=== PATIENT | male | born 1955 | race Caucasian/White ===

== ENCOUNTER 2020-07-27 12:27 | Inpatient (IN) ==
[2020-07-27] MEDS ORDERED: CETIRIZINE 10 MG TABLET PO STA (12:59)
[2020-07-27] MEDS ORDERED: DEXAMETHASONE 4 MG/1 ML VIAL IV STA (12:59)
[2020-07-27] MEDS ORDERED: FAMOTIDINE 20 MG/2 ML VIAL IV STA (12:59)
[2020-07-27] MEDS ORDERED: PIPERACILLIN/TAZOBACTAM 3,375 MG in SODIUM CHLORIDE 0.9% 100 ML IV STA (13:09)
[2020-07-27 13:16] LABS: Basophils % 0.3 % (0.0-0.8); Eosinophils % 0.4 % (0.00-10.9); Hematocrit 35.9 VOL% (42.0-52.0); Hemoglobin 11.7 GM/DL (14.0-18.0); Immature Granulocytes Absolute 0.07 #; Lymphocytes # 0.7 10*3/uL (1.4-4.0); Lymphocytes % 10.5 % (21.2-54.2); Mean Corpuscular HGB Conc 32.6 GM/DL (32-36); Mean Corpuscular Volume 94.2 FL (87-102); Mean Platelet Volume 10.4 FL (9.6-12.0); Monocytes % 7.6 % (1.7-12.7); Neutrophils % 80.2 % (38.7-73.9); Platelet Count 224 T/CUMM (130-400); Red Blood Count 3.81 MC/CUMM (3.8-5.5); Red Cell Distribution Width 15.9 % (9.3-17.3); White Blood Count 6.7 T/CUMM (4-12)
[2020-07-27 13:30] LABS: INR 1.8; PT Patient Result 18.8 SECS (9.8-11.9)
[2020-07-27 13:40] LABS: Albumin 2.4 G/DL (3.4-5.0); Bilirubin,Total 0.6 MG/DL (0.2-1.0); Calcium 8.4 MG/DL (8.5-10.1); Ferritin 597.9 ng/ml (26-388); Osmolality,Calculated 276.7 MOS/KG (273-304); Total Protein 7.3 G/DL (6.4-8.3)
[2020-07-27] MEDS ORDERED: ONDANSETRON 4 MG/2 ML VIAL IV PRN (14:12)
[2020-07-27] MEDS ORDERED: ALBUTEROL 2.5 MG/3 ML NEB RESP TX PRN (14:12)
[2020-07-27 15:01] LABS: ABG Base Excess -4.4 MMOL/L (-2.5-2.5); ABG HCO3 20.7 MMOL/L (20-26); ABG Oxygen Saturation 93.9 % (95-100); ABG PCO2 27.3 MM HG (35-48); ABG PO2 68.1 MM HG (80-95); ABG TCO2 16.5 MMOL/L (23-27)
[2020-07-27] MEDS: SODIUM CHLORIDE 0.9% 1,000 ML IV SCH (15:20)
[2020-07-27] MEDS: cefTRIAXone 1,000 MG in SYRINGE 1 EACH IV SCH (15:21)
[2020-07-27] MEDS: ENOXAPARIN 80 MG/0.8 ML SYRINGE SUBCUT SCH (15:24)
[2020-07-27] MEDS: AZITHROMYCIN INJ 500 MG in SODIUM CHLORIDE 0.9% 250 ML IV SCH (15:25)
[2020-07-27] MEDS ORDERED: METOPROLOL SUCCINATE XL 50 MG TABLET PO ONE ×2 (16:58→17:03)
[2020-07-27] MEDS: ALPRAZolam 0.25 MG TABLET PO PRN ×2 (17:01→23:20)
[2020-07-27] MEDS: ISOSORBIDE MONONITRATE 60 MG TABLET PO SCH (17:43)
[2020-07-27] MEDS ORDERED: ALBUTEROL/IPRATROPIUM 3 ML NEB RESP TX SCH (19:00)
[2020-07-27 19:59] LABS: Bacteria,Urine Occasional /HPF (Few); Bilirubin,Urine Negative (Negative); Blood, Urine Small mg/dL (Negative); Glucose,Urine (UA) Negative (Negative); Ketones,Urine 20 mg/dL (Negative); Mucus,Urine Occasional /LPF (Occasional); Nitrite,Urine Negative (Negative); Protein,Urine 100 MG/DL; RBC,Urine 1 /HPF (0-4); Squamous Epithelial Cell,Urine Occasional /HPF (0-10); Urine Appearance CLEAR (Clear); Urine Color Amber (Yellow); Urine Specific Gravity 1.021 (1.001-1.035); WBC,Urine 2 /HPF (0-6)
[2020-07-27] MEDS: ALBUTEROL INHALER 18 GM INH SCH (20:04)
[2020-07-27] MEDS: FUROSEMIDE 40 MG TABLET PO SCH (21:03)
[2020-07-27] MEDS: ATORVASTATIN 40 MG TABLET PO SCH (21:03)
[2020-07-28] MEDS: SODIUM CHLORIDE 0.9% 1,000 ML IV SCH ×3 (02:15→21:00)
[2020-07-28 02:46] LABS: ABG Base Excess -5.1 MMOL/L (-2.5-2.5); ABG HCO3 20.1 MMOL/L (20-26); ABG PCO2 31.8 MM HG (35-48); ABG PH 7.386 (7.35-7.45); ABG TCO2 17.4 MMOL/L (23-27); Allen Test Positive; Pt O2 Delivery Device CPAP
[2020-07-28] MEDS: ENOXAPARIN 80 MG/0.8 ML SYRINGE SUBCUT SCH ×2 (04:27→14:52)
[2020-07-28 05:03] LABS: Basophils % 0.2 % (0.0-0.8); Hematocrit 31.1 VOL% (42.0-52.0); Immature Granulocytes % 1.1 %; Immature Granulocytes Absolute 0.06 #; Lymphocytes # 0.4 10*3/uL (1.4-4.0); Lymphocytes % 6.7 % (21.2-54.2); Mean Corpuscular HGB Conc 32.2 GM/DL (32-36); Platelet Count 200 T/CUMM (130-400); Red Blood Count 3.31 MC/CUMM (3.8-5.5); White Blood Count 5.7 T/CUMM (4-12)
[2020-07-28 05:18] LABS: Bilirubin,Total 0.8 MG/DL (0.2-1.0); Calcium 7.4 MG/DL (8.5-10.1); Osmolality,Calculated 286.1 MOS/KG (273-304); Total Protein 5.6 G/DL (6.4-8.3)
[2020-07-28 05:22] LABS: Microcytosis 1+; Ovalocytes Slight; Platelet Estimate Normal
[2020-07-28] MEDS ORDERED: SODIUM CHLORIDE 0.9% 1,000 ML IV PRN (07:48)
[2020-07-28] MEDS: ALPRAZolam 0.25 MG TABLET PO PRN ×2 (07:59→20:17)
[2020-07-28] MEDS: DEXAMETHASONE 4 MG/1 ML VIAL IV SCH (08:02)
[2020-07-28] MEDS: CHOLECALCIFEROL 400 UNIT TABLET PO SCH (08:03)
[2020-07-28] MEDS: FAMOTIDINE 20 MG TABLET PO SCH (08:03)
[2020-07-28] MEDS: SERTRALINE 100 MG TABLET PO SCH ×2 (08:03→08:26)
[2020-07-28] MEDS: ASCORBIC ACID 500 MG TABLET PO SCH (08:03)
[2020-07-28] MEDS: ZINC GLUCONATE 50 MG TABLET PO SCH (08:03)
[2020-07-28] MEDS: CLOPIDOGREL 75 MG TABLET PO SCH (08:04)
[2020-07-28] MEDS: FUROSEMIDE 40 MG TABLET PO SCH ×2 (08:04→20:19)
[2020-07-28] MEDS: cefTRIAXone 1,000 MG in SYRINGE 1 EACH IV SCH (08:04)
[2020-07-28] MEDS: LEVOTHYROXINE 25 MCG TABLET PO SCH (08:05)
[2020-07-28] MEDS: FEBUXOSTAT 80 MG TABLET PO SCH (08:05)
[2020-07-28] MEDS: ALBUTEROL INHALER 18 GM INH SCH ×4 (08:34→20:16)
[2020-07-28] MEDS ORDERED: RIVAROXABAN 10 MG TABLET PO SCH (09:00)
[2020-07-28] MEDS ORDERED: REMDESIVIR 200 MG in SODIUM CHLORIDE 0.9% 210 ML IV ONE (09:00)
[2020-07-28] MEDS: ISOSORBIDE MONONITRATE 60 MG TABLET PO SCH (09:32)
[2020-07-28] MEDS: AZITHROMYCIN INJ 500 MG in SODIUM CHLORIDE 0.9% 250 ML IV SCH (14:52)
[2020-07-28] MEDS: METOPROLOL SUCCINATE XL 50 MG TABLET PO SCH (17:35)
[2020-07-28] MEDS: ATORVASTATIN 40 MG TABLET PO SCH (20:17)
[2020-07-29 00:21] LABS: ABG Base Excess -3.8 MMOL/L (-2.5-2.5); ABG HCO3 19.7 MMOL/L (20-26); ABG Oxygen Saturation 88.5 % (95-100); ABG PCO2 30.5 MM HG (35-48); ABG PH 7.428 (7.35-7.45); ABG PO2 55.7 MM HG (80-95); ABG TCO2 20.6 MMOL/L (23-27); Allen Test Positive; Pt O2 Delivery Device BIPAP
[2020-07-29] MEDS ORDERED: ETOMIDATE 20 MG/10 ML VIAL IV ONE ×3 (00:30→07:34)
[2020-07-29] MEDS ORDERED: ROCURONIUM 100 MG/10 ML VIAL IV ONE (00:31)
[2020-07-29] MEDS ORDERED: LORazepam 2 MG/1 ML VIAL ONE (00:48)
[2020-07-29] MEDS ORDERED: LORazepam 2 MG/1 ML VIAL IV STA (01:12)
[2020-07-29] MEDS: ALBUTEROL INHALER 18 GM INH SCH ×4 (01:28→20:02)
[2020-07-29] MEDS: ENOXAPARIN 80 MG/0.8 ML SYRINGE SUBCUT SCH ×2 (03:21→15:09)
[2020-07-29 03:39] LABS: ABG Base Excess -3.5 MMOL/L (-2.5-2.5); ABG HCO3 19.8 MMOL/L (20-26); ABG Oxygen Saturation 90.9 % (95-100); ABG PCO2 29.9 MM HG (35-48); ABG PH 7.439 (7.35-7.45); ABG PO2 58.1 MM HG (80-95); ABG TCO2 20.7 MMOL/L (23-27); Allen Test Positive; Pt O2 Delivery Device BIPAP
[2020-07-29] MEDS ORDERED: HALOPERIDOL 5 MG/ML AMP IM STA (04:17)
[2020-07-29 04:41] LABS: Hematocrit 30.9 VOL% (42.0-52.0); Hemoglobin 10.1 GM/DL (14.0-18.0); Immature Granulocytes Absolute 0.09 #; Lymphocytes # 0.5 10*3/uL (1.4-4.0); Lymphocytes % 5.6 % (21.2-54.2); Mean Corpuscular HGB Conc 32.7 GM/DL (32-36); Mean Platelet Volume 10.5 FL (9.6-12.0); Monocytes % 6.3 % (1.7-12.7); Neutrophils % 87.1 % (38.7-73.9); Platelet Count 245 T/CUMM (130-400); Red Blood Count 3.36 MC/CUMM (3.8-5.5); Red Cell Distribution Width 15.9 % (9.3-17.3); White Blood Count 8.7 T/CUMM (4-12)
[2020-07-29 04:59] LABS: Calcium 7.8 MG/DL (8.5-10.1); Osmolality,Calculated 287.1 MOS/KG (273-304)
[2020-07-29 05:06] LABS: Band Neutrophils 4 % (0-10); Lymphocytes 5 % (20-55); Microcytosis 1+; Segmented Neutrophils 90 % (50-85); Total Cells Counted 100
[2020-07-29] MEDS: SODIUM CHLORIDE 0.9% 1,000 ML IV SCH ×2 (06:24→16:59)
[2020-07-29] MEDS ORDERED: SUCCINYLCHOLINE 200 MG/10 ML VIAL ONE (07:14)
[2020-07-29] MEDS ORDERED: SODIUM CHLORIDE 0.9% 500 ML IV ONE (07:30)
[2020-07-29] MEDS ORDERED: SUCCINYLCHOLINE 200 MG/10 ML VIAL IV ONE (07:35)
[2020-07-29] MEDS ORDERED: NOREPINEPHRINE 8 MG in SODIUM CHLORIDE 0.9% 242 ML IV PRN (08:00)
[2020-07-29] MEDS: MIDAZOLAM 100 MG in SODIUM CHLORIDE 0.9% 80 ML IV PRN (08:20)
[2020-07-29 09:05] LABS: ABG Base Excess -5.4 MMOL/L (-2.5-2.5); ABG Oxygen Saturation 99.4 % (95-100); ABG PCO2 53.5 MM HG (35-48); ABG PH 7.233 (7.35-7.45); ABG TCO2 20.9 MMOL/L (23-27); Allen Test Positive; Pt O2 Delivery Device Ventilator
[2020-07-29] MEDS: DEXAMETHASONE 4 MG/1 ML VIAL IV SCH (09:09)
[2020-07-29] MEDS: LEVOTHYROXINE 25 MCG TABLET PO SCH (09:10)
[2020-07-29] MEDS: cefTRIAXone 1,000 MG in SYRINGE 1 EACH IV SCH (09:10)
[2020-07-29] MEDS: FEBUXOSTAT 80 MG TABLET PO SCH (09:11)
[2020-07-29] MEDS: ZINC GLUCONATE 50 MG TABLET PO SCH (09:11)
[2020-07-29] MEDS: ASCORBIC ACID 500 MG TABLET PO SCH (09:11)
[2020-07-29] MEDS: SERTRALINE 100 MG TABLET PO SCH (09:11)
[2020-07-29] MEDS: METOPROLOL SUCCINATE XL 50 MG TABLET PO SCH (09:11)
[2020-07-29] MEDS: FAMOTIDINE 20 MG TABLET PO SCH (09:12)
[2020-07-29] MEDS: ISOSORBIDE MONONITRATE 60 MG TABLET PO SCH (09:12)
[2020-07-29] MEDS: FUROSEMIDE 40 MG TABLET PO SCH ×2 (09:12→20:02)
[2020-07-29] MEDS: CLOPIDOGREL 75 MG TABLET PO SCH (09:16)
[2020-07-29] MEDS: REMDESIVIR 100 MG in SODIUM CHLORIDE 0.9% 230 ML IV SCH (09:16)
[2020-07-29] MEDS: CHOLECALCIFEROL 400 UNIT TABLET PO SCH (09:16)
[2020-07-29] MEDS: AZITHROMYCIN INJ 500 MG in SODIUM CHLORIDE 0.9% 250 ML IV SCH (15:11)
[2020-07-29] MEDS: ATORVASTATIN 40 MG TABLET PO SCH (20:02)
[2020-07-30] MEDS: ALBUTEROL INHALER 18 GM INH SCH ×4 (02:18→19:40)
[2020-07-30] MEDS: SODIUM CHLORIDE 0.9% 1,000 ML IV SCH ×3 (02:55→22:44)
[2020-07-30] MEDS: ENOXAPARIN 80 MG/0.8 ML SYRINGE SUBCUT SCH ×2 (02:55→14:41)
[2020-07-30 04:20] LABS: Hematocrit 31.1 VOL% (42.0-52.0); Immature Granulocytes % 1.4 %; Immature Granulocytes Absolute 0.09 #; Lymphocytes # 0.6 10*3/uL (1.4-4.0); Lymphocytes % 9.3 % (21.2-54.2); Mean Corpuscular HGB Conc 32.2 GM/DL (32-36); Mean Corpuscular Volume 94.2 FL (87-102); Mean Platelet Volume 10.9 FL (9.6-12.0); Monocytes % 7.3 % (1.7-12.7); NRBC # 0.02 10*3/uL; Platelet Count 277 T/CUMM (130-400); Red Cell Distribution Width 16.3 % (9.3-17.3); White Blood Count 6.6 T/CUMM (4-12)
[2020-07-30 04:30] LABS: Osmolality,Calculated 295.7 MOS/KG (273-304)
[2020-07-30 04:55] LABS: ABG Base Excess -4.4 MMOL/L (-2.5-2.5); ABG HCO3 20.8 MMOL/L (20-26); ABG Oxygen Saturation 98.2 % (95-100); ABG PCO2 43.6 MM HG (35-48); ABG PH 7.307 (7.35-7.45); ABG TCO2 19.8 MMOL/L (23-27); Allen Test Positive; Pt O2 Delivery Device Ventilator
[2020-07-30 05:00] LABS: Band Neutrophils 1 % (0-10); Lymphocytes 7 % (20-55); Microcytosis 1+; Segmented Neutrophils 87 % (50-85); Total Cells Counted 100
[2020-07-30 05:01] LABS: Ovalocytes Slight; Platelet Estimate Normal
[2020-07-30] MEDS: cefTRIAXone 1,000 MG in SYRINGE 1 EACH IV SCH (08:44)
[2020-07-30] MEDS: DEXAMETHASONE 4 MG/1 ML VIAL IV SCH (08:45)
[2020-07-30] MEDS: CHOLECALCIFEROL 400 UNIT TABLET PO SCH (08:45)
[2020-07-30] MEDS: ASCORBIC ACID 500 MG TABLET PO SCH (08:45)
[2020-07-30] MEDS: SERTRALINE 100 MG TABLET PO SCH (08:45)
[2020-07-30] MEDS: ZINC GLUCONATE 50 MG TABLET PO SCH (08:45)
[2020-07-30] MEDS: LEVOTHYROXINE 25 MCG TABLET PO SCH (08:45)
[2020-07-30] MEDS: ISOSORBIDE MONONITRATE 60 MG TABLET PO SCH (08:45)
[2020-07-30] MEDS: FUROSEMIDE 40 MG TABLET PO SCH ×2 (08:46→20:19)
[2020-07-30] MEDS: FEBUXOSTAT 80 MG TABLET PO SCH (08:46)
[2020-07-30] MEDS: CLOPIDOGREL 75 MG TABLET PO SCH (08:46)
[2020-07-30] MEDS: FAMOTIDINE 20 MG TABLET PO SCH (08:46)
[2020-07-30] MEDS: REMDESIVIR 100 MG in SODIUM CHLORIDE 0.9% 230 ML IV SCH (08:51)
[2020-07-30] MEDS ORDERED: GLUCAGON 1 MG VIAL IM PRN (08:59)
[2020-07-30] MEDS ORDERED: DEXTROSE 50% 25 GM/50 ML VIAL IV PRN (08:59)
[2020-07-30] MEDS: INSULIN REGULAR 100 UNIT/ML SUBCUT SCH ×2 (11:10→17:49)
[2020-07-30] MEDS: hydrALAZINE 20 MG/1 ML VIAL IV PRN (14:40)
[2020-07-30] MEDS: AZITHROMYCIN INJ 500 MG in SODIUM CHLORIDE 0.9% 250 ML IV SCH (14:41)
[2020-07-30] MEDS: ATORVASTATIN 40 MG TABLET PO SCH (20:19)
[2020-07-31] MEDS: INSULIN REGULAR 100 UNIT/ML SUBCUT SCH ×4 (01:12→17:27)
[2020-07-31] MEDS: ALBUTEROL INHALER 18 GM INH SCH ×4 (01:13→20:01)
[2020-07-31] MEDS: MIDAZOLAM 100 MG in SODIUM CHLORIDE 0.9% 80 ML IV PRN ×2 (02:16→17:41)
[2020-07-31] MEDS: ENOXAPARIN 80 MG/0.8 ML SYRINGE SUBCUT SCH ×2 (03:41→14:06)
[2020-07-31 04:25] LABS: Basophils % 0.1 % (0.0-0.8); Hematocrit 31.2 VOL% (42.0-52.0); Immature Granulocytes % 4.3 %; Immature Granulocytes Absolute 0.33 #; Lymphocytes # 0.9 10*3/uL (1.4-4.0); Lymphocytes % 11.8 % (21.2-54.2); Mean Corpuscular HGB Conc 32.1 GM/DL (32-36); Mean Corpuscular Volume 95.4 FL (87-102); Mean Platelet Volume 10.6 FL (9.6-12.0); Monocytes % 6.9 % (1.7-12.7); NRBC # 0.02 10*3/uL; Neutrophils % 76.9 % (38.7-73.9); Platelet Count 342 T/CUMM (130-400); Red Blood Count 3.27 MC/CUMM (3.8-5.5); Red Cell Distribution Width 16.3 % (9.3-17.3); White Blood Count 7.7 T/CUMM (4-12)
[2020-07-31 04:28] LABS: ABG Base Excess -1.6 MMOL/L (-2.5-2.5); ABG HCO3 22.8 MMOL/L (20-26); ABG Oxygen Saturation 95.2 % (95-100); ABG PCO2 37.4 MM HG (35-48); ABG PH 7.403 (7.35-7.45); ABG PO2 76.4 MM HG (80-95); Allen Test Positive; Pt O2 Delivery Device Ventilator
[2020-07-31 04:45] LABS: Calcium 7.8 MG/DL (8.5-10.1); Osmolality,Calculated 302.4 MOS/KG (273-304)
[2020-07-31 05:58] LABS: Band Neutrophils 2 % (0-10); Hypochromasia Slight; Lymphocytes 14 % (20-55); Microcytosis Slight; Platelet Estimate Adequate; Segmented Neutrophils 75 % (50-85); Total Cells Counted 100
[2020-07-31] MEDS: DEXAMETHASONE 4 MG/1 ML VIAL IV SCH (08:03)
[2020-07-31] MEDS: ZINC GLUCONATE 50 MG TABLET PO SCH (08:04)
[2020-07-31] MEDS: FAMOTIDINE 20 MG TABLET PO SCH (08:05)
[2020-07-31] MEDS: ISOSORBIDE MONONITRATE 60 MG TABLET PO SCH (08:05)
[2020-07-31] MEDS: LEVOTHYROXINE 25 MCG TABLET PO SCH (08:05)
[2020-07-31] MEDS: ASCORBIC ACID 500 MG TABLET PO SCH (08:05)
[2020-07-31] MEDS: FEBUXOSTAT 80 MG TABLET PO SCH (08:05)
[2020-07-31] MEDS: FUROSEMIDE 40 MG TABLET PO SCH (08:05)
[2020-07-31] MEDS: CLOPIDOGREL 75 MG TABLET PO SCH (08:05)
[2020-07-31] MEDS: CHOLECALCIFEROL 400 UNIT TABLET PO SCH (08:06)
[2020-07-31] MEDS: cefTRIAXone 1,000 MG in SYRINGE 1 EACH IV SCH (08:06)
[2020-07-31] MEDS: SERTRALINE 100 MG TABLET PO SCH (08:35)
[2020-07-31] MEDS: SODIUM CHLORIDE 0.9% 1,000 ML IV SCH (08:41)
[2020-07-31] MEDS: REMDESIVIR 100 MG in SODIUM CHLORIDE 0.9% 230 ML IV SCH (09:16)
[2020-07-31] MEDS: AZITHROMYCIN INJ 500 MG in SODIUM CHLORIDE 0.9% 250 ML IV SCH (14:06)
[2020-07-31] MEDS: hydrALAZINE 20 MG/1 ML VIAL IV PRN (18:37)
[2020-07-31] MEDS: cloNIDine 0.1 MG TABLET PO PRN (19:55)
[2020-07-31] MEDS: ATORVASTATIN 40 MG TABLET PO SCH (20:01)
[2020-08-01] MEDS: cloNIDine 0.1 MG TABLET PO PRN ×4 (00:42→20:56)
[2020-08-01] MEDS: hydrALAZINE 20 MG/1 ML VIAL IV PRN ×2 (00:42→13:48)
[2020-08-01] MEDS: INSULIN REGULAR 100 UNIT/ML SUBCUT SCH ×5 (00:44→23:28)
[2020-08-01] MEDS: ALBUTEROL INHALER 18 GM INH SCH ×4 (01:58→18:52)
[2020-08-01 03:29] LABS: ABG HCO3 26.2 MMOL/L (20-26); ABG Oxygen Saturation 97.6 % (95-100); ABG PCO2 42.2 MM HG (35-48); ABG PH 7.412 (7.35-7.45); ABG PO2 95.4 MM HG (80-95); ABG TCO2 23.9 MMOL/L (23-27); Allen Test Positive; Pt O2 Delivery Device Ventilator
[2020-08-01] MEDS: ENOXAPARIN 80 MG/0.8 ML SYRINGE SUBCUT SCH ×2 (04:14→15:23)
[2020-08-01 04:33] LABS: Basophils # 0.1 10*3/uL (0.0-0.2); Basophils % 0.6 % (0.0-0.8); Eosinophils % 0.4 % (0.00-10.9); Hematocrit 34.5 VOL% (42.0-52.0); Hemoglobin 11.1 GM/DL (14.0-18.0); Immature Granulocytes % 6.9 %; Immature Granulocytes Absolute 0.58 #; Lymphocytes # 1.1 10*3/uL (1.4-4.0); Lymphocytes % 13.5 % (21.2-54.2); Mean Corpuscular HGB Conc 32.2 GM/DL (32-36); Mean Corpuscular Volume 94.3 FL (87-102); Mean Platelet Volume 10.1 FL (9.6-12.0); Monocytes % 9.3 % (1.7-12.7); NRBC # 0.03 10*3/uL; Neutrophils % 69.3 % (38.7-73.9); Platelet Count 404 T/CUMM (130-400); Red Blood Count 3.66 MC/CUMM (3.8-5.5); Red Cell Distribution Width 16.1 % (9.3-17.3); White Blood Count 8.5 T/CUMM (4-12)
[2020-08-01 05:07] LABS: Band Neutrophils 1 % (0-10); Lymphocytes 19 % (20-55); Segmented Neutrophils 73 % (50-85)
[2020-08-01 05:08] LABS: Giant Platelets Few; Hypochromasia 1+; Platelet Estimate Normal
[2020-08-01 05:10] LABS: Total Cells Counted 100
[2020-08-01 07:00] LABS: Osmolality,Calculated 300.6 MOS/KG (273-304)
[2020-08-01] MEDS: cefTRIAXone 1,000 MG in SYRINGE 1 EACH IV SCH (08:04)
[2020-08-01] MEDS: CHOLECALCIFEROL 400 UNIT TABLET PO SCH (08:04)
[2020-08-01] MEDS: LEVOTHYROXINE 25 MCG TABLET PO SCH (08:04)
[2020-08-01] MEDS: ISOSORBIDE MONONITRATE 60 MG TABLET PO SCH (08:05)
[2020-08-01] MEDS: ZINC GLUCONATE 50 MG TABLET PO SCH (08:05)
[2020-08-01] MEDS: ASCORBIC ACID 500 MG TABLET PO SCH (08:05)
[2020-08-01] MEDS: FEBUXOSTAT 80 MG TABLET PO SCH (08:05)
[2020-08-01] MEDS: FAMOTIDINE 20 MG TABLET PO SCH (08:05)
[2020-08-01] MEDS: CLOPIDOGREL 75 MG TABLET PO SCH (08:05)
[2020-08-01] MEDS: FUROSEMIDE 40 MG TABLET PO SCH (08:06)
[2020-08-01] MEDS: DEXAMETHASONE 4 MG/1 ML VIAL IV SCH (08:07)
[2020-08-01] MEDS: SERTRALINE 100 MG TABLET PO SCH (08:07)
[2020-08-01] MEDS ORDERED: POTASSIUM CHLORIDE 20 MEQ/15 ML UDCUP ONE (09:25)
[2020-08-01] MEDS: REMDESIVIR 100 MG in SODIUM CHLORIDE 0.9% 230 ML IV SCH (09:50)
[2020-08-01] MEDS: POTASSIUM CHLORIDE 20 MEQ/15 ML UDCUP PER TUBE PRN ×4 (09:52→23:30)
[2020-08-01] MEDS: ROCURONIUM 500 MG in SODIUM CHLORIDE 0.9% 500 ML IV PRN (10:00)
[2020-08-01] MEDS: AZITHROMYCIN INJ 500 MG in SODIUM CHLORIDE 0.9% 250 ML IV SCH (15:21)
[2020-08-01] MEDS ORDERED: METOPROLOL SUCCINATE XL 50 MG TABLET PO SCH (16:43)
[2020-08-01] MEDS: ATORVASTATIN 40 MG TABLET PO SCH (20:56)
[2020-08-02] MEDS: ALBUTEROL INHALER 18 GM INH SCH ×4 (01:01→21:17)
[2020-08-02] MEDS: ROCURONIUM 500 MG in SODIUM CHLORIDE 0.9% 500 ML IV PRN ×2 (01:16→14:35)
[2020-08-02] MEDS: cloNIDine 0.1 MG TABLET PO PRN ×2 (01:39→09:40)
[2020-08-02] MEDS: hydrALAZINE 20 MG/1 ML VIAL IV PRN ×2 (01:41→09:40)
[2020-08-02 03:14] LABS: ABG Base Excess 2.9 MMOL/L (-2.5-2.5); ABG HCO3 26.8 MMOL/L (20-26); ABG Oxygen Saturation 91.1 % (95-100); ABG PCO2 51.1 MM HG (35-48); ABG PH 7.365 (7.35-7.45); Allen Test Positive; Pt O2 Delivery Device Ventilator
[2020-08-02] MEDS: ENOXAPARIN 80 MG/0.8 ML SYRINGE SUBCUT SCH ×2 (03:42→14:46)
[2020-08-02 04:03] LABS: Basophils # 0.1 10*3/uL (0.0-0.2); Basophils % 0.7 % (0.0-0.8); Eosinophils # 0.1 10*3/uL (0.0-0.87); Eosinophils % 0.7 % (0.00-10.9); Hematocrit 36.7 VOL% (42.0-52.0); Hemoglobin 11.5 GM/DL (14.0-18.0); Immature Granulocytes % 8.6 %; Immature Granulocytes Absolute 0.83 #; Lymphocytes # 1.2 10*3/uL (1.4-4.0); Lymphocytes % 12.9 % (21.2-54.2); Mean Corpuscular HGB Conc 31.3 GM/DL (32-36); Mean Corpuscular Volume 95.8 FL (87-102); Mean Platelet Volume 10.2 FL (9.6-12.0); Monocytes % 9.4 % (1.7-12.7); NRBC # 0.02 10*3/uL; Neutrophils % 67.7 % (38.7-73.9); Platelet Count 435 T/CUMM (130-400); Red Blood Count 3.83 MC/CUMM (3.8-5.5); Red Cell Distribution Width 16.4 % (9.3-17.3); White Blood Count 9.6 T/CUMM (4-12)
[2020-08-02 04:30] LABS: Calcium 8.4 MG/DL (8.5-10.1); Osmolality,Calculated 301.4 MOS/KG (273-304)
[2020-08-02 04:36] LABS: Lymphocytes 8 % (20-55); Platelet Estimate Increased; Segmented Neutrophils 84 % (50-85); Total Cells Counted 100
[2020-08-02] MEDS: INSULIN REGULAR 100 UNIT/ML SUBCUT SCH ×3 (05:47→17:50)
[2020-08-02] MEDS: POTASSIUM CHLORIDE 20 MEQ/15 ML UDCUP PER TUBE PRN ×3 (05:48→12:38)
[2020-08-02] MEDS: DEXAMETHASONE 4 MG/1 ML VIAL IV SCH (09:28)
[2020-08-02] MEDS: ZINC GLUCONATE 50 MG TABLET PO SCH (09:29)
[2020-08-02] MEDS: CLOPIDOGREL 75 MG TABLET PO SCH (09:29)
[2020-08-02] MEDS: ISOSORBIDE MONONITRATE 60 MG TABLET PO SCH (09:30)
[2020-08-02] MEDS: FEBUXOSTAT 80 MG TABLET PO SCH (09:30)
[2020-08-02] MEDS: CHOLECALCIFEROL 400 UNIT TABLET PO SCH (09:30)
[2020-08-02] MEDS: SERTRALINE 100 MG TABLET PO SCH (09:30)
[2020-08-02] MEDS: FUROSEMIDE 40 MG TABLET PO SCH (09:30)
[2020-08-02] MEDS: ASCORBIC ACID 500 MG TABLET PO SCH (09:30)
[2020-08-02] MEDS: cefTRIAXone 1,000 MG in SYRINGE 1 EACH IV SCH (09:31)
[2020-08-02] MEDS: LEVOTHYROXINE 25 MCG TABLET PO SCH (09:32)
[2020-08-02] MEDS: FAMOTIDINE 20 MG TABLET PO SCH (09:32)
[2020-08-02] MEDS: METOPROLOL TARTRATE 50 MG TABLET PO SCH ×2 (10:39→21:17)
[2020-08-02] MEDS: cloNIDine 0.3 MG/24 HR PATCH TRANSDERM SCH (12:39)
[2020-08-02] MEDS: fentaNYL INJ 1,250 MCG in SODIUM CHLORIDE 0.9% 225 ML IV PRN ×2 (12:53→20:25)
[2020-08-02] MEDS: AZITHROMYCIN INJ 500 MG in SODIUM CHLORIDE 0.9% 250 ML IV SCH (14:46)
[2020-08-02] MEDS: ATORVASTATIN 40 MG TABLET PO SCH (21:17)
[2020-08-03] MEDS: ALBUTEROL INHALER 18 GM INH SCH ×4 (00:05→18:00)
[2020-08-03] MEDS: INSULIN REGULAR 100 UNIT/ML SUBCUT SCH ×4 (00:05→17:11)
[2020-08-03] MEDS: ENOXAPARIN 80 MG/0.8 ML SYRINGE SUBCUT SCH ×2 (02:56→14:43)
[2020-08-03 03:34] LABS: ABG Base Excess 0.9 MMOL/L (-2.5-2.5); ABG HCO3 25.2 MMOL/L (20-26); ABG PCO2 39.2 MM HG (35-48); ABG PH 7.426 (7.35-7.45); ABG PO2 95.3 MM HG (80-95); ABG TCO2 26.4 MMOL/L (23-27)
[2020-08-03] MEDS: fentaNYL INJ 1,250 MCG in SODIUM CHLORIDE 0.9% 225 ML IV PRN ×2 (04:25→12:55)
[2020-08-03 05:14] LABS: Basophils % 0.5 % (0.0-0.8); Eosinophils # 0.1 10*3/uL (0.0-0.87); Eosinophils % 1.1 % (0.00-10.9); Hematocrit 32.3 VOL% (42.0-52.0); Hemoglobin 10.2 GM/DL (14.0-18.0); Immature Granulocytes % 10.7 %; Immature Granulocytes Absolute 0.91 #; Lymphocytes # 1.3 10*3/uL (1.4-4.0); Lymphocytes % 15.1 % (21.2-54.2); Mean Corpuscular HGB Conc 31.6 GM/DL (32-36); Mean Corpuscular Volume 96.7 FL (87-102); Mean Platelet Volume 10.2 FL (9.6-12.0); Monocytes % 8.7 % (1.7-12.7); NRBC # 0.02 10*3/uL; Neutrophils % 63.9 % (38.7-73.9); Platelet Count 408 T/CUMM (130-400); Red Blood Count 3.34 MC/CUMM (3.8-5.5); Red Cell Distribution Width 16.6 % (9.3-17.3); White Blood Count 8.5 T/CUMM (4-12)
[2020-08-03 05:37] LABS: Osmolality,Calculated 306.3 MOS/KG (273-304)
[2020-08-03 05:56] LABS: Band Neutrophils 1 % (0-10); Eosinophils 1 % (0-10); Hypochromasia 1+; Lymphocytes 16 % (20-55); Microcytosis 1+; Ovalocytes Slight; Platelet Estimate Adequate; Segmented Neutrophils 70 % (50-85); Total Cells Counted 100
[2020-08-03] MEDS: ZINC GLUCONATE 50 MG TABLET PO SCH (08:02)
[2020-08-03] MEDS: METOPROLOL TARTRATE 50 MG TABLET PO SCH (08:03)
[2020-08-03] MEDS: CHOLECALCIFEROL 400 UNIT TABLET PO SCH (08:03)
[2020-08-03] MEDS: LEVOTHYROXINE 25 MCG TABLET PO SCH (08:03)
[2020-08-03] MEDS: FEBUXOSTAT 80 MG TABLET PO SCH (08:03)
[2020-08-03] MEDS: FAMOTIDINE 20 MG TABLET PO SCH (08:03)
[2020-08-03] MEDS: ISOSORBIDE MONONITRATE 60 MG TABLET PO SCH (08:03)
[2020-08-03] MEDS: CLOPIDOGREL 75 MG TABLET PO SCH (08:03)
[2020-08-03] MEDS: ASCORBIC ACID 500 MG TABLET PO SCH (08:03)
[2020-08-03] MEDS: SERTRALINE 100 MG TABLET PO SCH (08:03)
[2020-08-03] MEDS: DEXAMETHASONE 4 MG/1 ML VIAL IV SCH (08:04)
[2020-08-03] MEDS: cefTRIAXone 1,000 MG in SYRINGE 1 EACH IV SCH (08:05)
[2020-08-03] MEDS ORDERED: INFLUENZA VIRUS VACCINE 0.5 ML SYRINGE IM ONE (09:00)
[2020-08-03] MEDS: AZITHROMYCIN INJ 500 MG in SODIUM CHLORIDE 0.9% 250 ML IV SCH (14:43)
[2020-08-03] MEDS: ATORVASTATIN 40 MG TABLET PO SCH (20:16)
[2020-08-03] MEDS: METOPROLOL TARTRATE 25 MG TABLET PO SCH (20:16)
[2020-08-04] MEDS: ALBUTEROL INHALER 18 GM INH SCH ×4 (00:04→18:54)
[2020-08-04] MEDS: INSULIN REGULAR 100 UNIT/ML SUBCUT SCH ×4 (00:04→19:22)
[2020-08-04] MEDS: ENOXAPARIN 80 MG/0.8 ML SYRINGE SUBCUT SCH ×2 (03:45→15:34)
[2020-08-04 04:09] LABS: Allen Test Positive; Pt O2 Delivery Device Ventilator
[2020-08-04 04:10] LABS: ABG Base Excess 2.5 MMOL/L (-2.5-2.5); ABG HCO3 26.6 MMOL/L (20-26); ABG Oxygen Saturation 97.8 % (95-100); ABG PCO2 50.2 MM HG (35-48); ABG PH 7.363 (7.35-7.45); ABG TCO2 26.1 MMOL/L (23-27)
[2020-08-04 04:37] LABS: Basophils % 0.3 % (0.0-0.8); Eosinophils % 0.5 % (0.00-10.9); Hematocrit 31.8 VOL% (42.0-52.0); Hemoglobin 9.7 GM/DL (14.0-18.0); Immature Granulocytes % 11.4 %; Immature Granulocytes Absolute 0.99 #; Lymphocytes # 1.2 10*3/uL (1.4-4.0); Lymphocytes % 13.8 % (21.2-54.2); Mean Corpuscular HGB Conc 30.5 GM/DL (32-36); Mean Corpuscular Volume 97.5 FL (87-102); Mean Platelet Volume 10.3 FL (9.6-12.0); Monocytes % 12.5 % (1.7-12.7); NRBC # 0.02 10*3/uL; Neutrophils % 61.5 % (38.7-73.9); Platelet Count 452 T/CUMM (130-400); Red Blood Count 3.26 MC/CUMM (3.8-5.5); Red Cell Distribution Width 16.7 % (9.3-17.3); White Blood Count 8.7 T/CUMM (4-12)
[2020-08-04 05:04] LABS: Hypochromasia Slight; Lymphocytes 19 % (20-55); Platelet Estimate Increased; Segmented Neutrophils 73 % (50-85); Total Cells Counted 100
[2020-08-04 05:20] LABS: Calcium 7.9 MG/DL (8.5-10.1); Osmolality,Calculated 307.3 MOS/KG (273-304)
[2020-08-04] MEDS: fentaNYL INJ 1,250 MCG in SODIUM CHLORIDE 0.9% 225 ML IV PRN ×3 (05:59→23:44)
[2020-08-04] MEDS: CLOPIDOGREL 75 MG TABLET PO SCH (08:06)
[2020-08-04] MEDS: DEXAMETHASONE 4 MG/1 ML VIAL IV SCH (08:06)
[2020-08-04] MEDS: SERTRALINE 100 MG TABLET PO SCH (08:06)
[2020-08-04] MEDS: METOPROLOL TARTRATE 25 MG TABLET PO SCH ×2 (08:06→20:39)
[2020-08-04] MEDS: FEBUXOSTAT 80 MG TABLET PO SCH (08:06)
[2020-08-04] MEDS: LEVOTHYROXINE 25 MCG TABLET PO SCH (08:07)
[2020-08-04] MEDS: FAMOTIDINE 20 MG TABLET PO SCH (08:07)
[2020-08-04] MEDS: CHOLECALCIFEROL 400 UNIT TABLET PO SCH (08:07)
[2020-08-04] MEDS: ASCORBIC ACID 500 MG TABLET PO SCH (08:07)
[2020-08-04] MEDS: ISOSORBIDE MONONITRATE 60 MG TABLET PO SCH (08:07)
[2020-08-04] MEDS: ZINC GLUCONATE 50 MG TABLET PO SCH (08:34)
[2020-08-04] MEDS ORDERED: FUROSEMIDE 40 MG/4 ML VIAL IV ONE (09:30)
[2020-08-04] MEDS: lisinopriL 5 MG TABLET PO SCH (11:31)
[2020-08-04] MEDS: ATORVASTATIN 40 MG TABLET PO SCH (20:39)
[2020-08-05] MEDS: INSULIN REGULAR 100 UNIT/ML SUBCUT SCH ×4 (00:41→17:36)
[2020-08-05] MEDS: ALBUTEROL INHALER 18 GM INH SCH ×4 (01:22→18:05)
[2020-08-05] MEDS: ENOXAPARIN 80 MG/0.8 ML SYRINGE SUBCUT SCH ×2 (02:52→15:56)
[2020-08-05 04:13] LABS: ABG Base Excess 2.6 MMOL/L (-2.5-2.5); ABG HCO3 26.7 MMOL/L (20-26); ABG Oxygen Saturation 96.6 % (95-100); ABG PCO2 43.6 MM HG (35-48); ABG PH 7.409 (7.35-7.45); ABG PO2 87.3 MM HG (80-95); ABG TCO2 24.7 MMOL/L (23-27); Allen Test Positive; Pt O2 Delivery Device Ventilator
[2020-08-05 04:45] LABS: Basophils % 0.2 % (0.0-0.8); Eosinophils % 0.4 % (0.00-10.9); Hematocrit 30.7 VOL% (42.0-52.0); Hemoglobin 9.4 GM/DL (14.0-18.0); Immature Granulocytes % 7.1 %; Immature Granulocytes Absolute 0.57 #; Lymphocytes % 12.7 % (21.2-54.2); Mean Corpuscular HGB Conc 30.6 GM/DL (32-36); Mean Corpuscular Volume 98.1 FL (87-102); Mean Platelet Volume 10.5 FL (9.6-12.0); Monocytes % 12.6 % (1.7-12.7); Platelet Count 413 T/CUMM (130-400); Red Blood Count 3.13 MC/CUMM (3.8-5.5); Red Cell Distribution Width 16.7 % (9.3-17.3); White Blood Count 8.1 T/CUMM (4-12)
[2020-08-05 05:08] LABS: Band Neutrophils 4 % (0-10); Hypochromasia 1+; Lymphocytes 11 % (20-55); Microcytosis 1+; Myelocytes 1 %; Nucleated Red Blood Cells 1 (0-5); Ovalocytes Slight; Platelet Estimate Adequate; Segmented Neutrophils 76 % (50-85); Total Cells Counted 100
[2020-08-05 05:16] LABS: Calcium 8.1 MG/DL (8.5-10.1); Osmolality,Calculated 310.3 MOS/KG (273-304)
[2020-08-05] MEDS: fentaNYL INJ 1,250 MCG in SODIUM CHLORIDE 0.9% 225 ML IV PRN ×2 (09:03→18:54)
[2020-08-05] MEDS: FEBUXOSTAT 80 MG TABLET PO SCH (10:00)
[2020-08-05] MEDS: CLOPIDOGREL 75 MG TABLET PO SCH (10:00)
[2020-08-05] MEDS: ASCORBIC ACID 500 MG TABLET PO SCH (10:00)
[2020-08-05] MEDS: FAMOTIDINE 20 MG TABLET PO SCH (10:00)
[2020-08-05] MEDS: ISOSORBIDE MONONITRATE 60 MG TABLET PO SCH (10:00)
[2020-08-05] MEDS: lisinopriL 5 MG TABLET PO SCH (10:00)
[2020-08-05] MEDS: METOPROLOL TARTRATE 25 MG TABLET PO SCH ×2 (10:00→20:27)
[2020-08-05] MEDS: ZINC GLUCONATE 50 MG TABLET PO SCH (10:00)
[2020-08-05] MEDS: SERTRALINE 100 MG TABLET PO SCH (10:00)
[2020-08-05] MEDS: LEVOTHYROXINE 25 MCG TABLET PO SCH (10:00)
[2020-08-05] MEDS: DEXAMETHASONE 4 MG/1 ML VIAL IV SCH (10:00)
[2020-08-05] MEDS: CHOLECALCIFEROL 400 UNIT TABLET PO SCH (10:05)
[2020-08-05] MEDS: ATORVASTATIN 40 MG TABLET PO SCH (20:27)
[2020-08-05] MEDS: hydrALAZINE 20 MG/1 ML VIAL IV PRN (21:40)
[2020-08-05] MEDS: cloNIDine 0.1 MG TABLET PO PRN (22:02)
[2020-08-06] MEDS: INSULIN REGULAR 100 UNIT/ML SUBCUT SCH ×4 (00:38→17:16)
[2020-08-06] MEDS: fentaNYL INJ 1,250 MCG in SODIUM CHLORIDE 0.9% 225 ML IV PRN ×3 (00:54→14:44)
[2020-08-06] MEDS: ALBUTEROL INHALER 18 GM INH SCH ×4 (01:45→18:34)
[2020-08-06] MEDS: ENOXAPARIN 80 MG/0.8 ML SYRINGE SUBCUT SCH ×2 (03:40→14:45)
[2020-08-06 04:20] LABS: Basophils % 0.2 % (0.0-0.8); Eosinophils % 0.3 % (0.00-10.9); Hematocrit 30.7 VOL% (42.0-52.0); Hemoglobin 9.6 GM/DL (14.0-18.0); Immature Granulocytes % 4.4 %; Immature Granulocytes Absolute 0.39 #; Lymphocytes # 0.9 10*3/uL (1.4-4.0); Lymphocytes % 9.9 % (21.2-54.2); Mean Corpuscular HGB Conc 31.3 GM/DL (32-36); Mean Corpuscular Volume 97.5 FL (87-102); Mean Platelet Volume 10.2 FL (9.6-12.0); Monocytes % 12.3 % (1.7-12.7); Neutrophils % 72.9 % (38.7-73.9); Platelet Count 380 T/CUMM (130-400); Red Blood Count 3.15 MC/CUMM (3.8-5.5); Red Cell Distribution Width 16.5 % (9.3-17.3); White Blood Count 8.9 T/CUMM (4-12)
[2020-08-06 04:51] LABS: Calcium 8.2 MG/DL (8.5-10.1); Osmolality,Calculated 305.4 MOS/KG (273-304)
[2020-08-06 05:43] LABS: ABG Base Excess 2.4 MMOL/L (-2.5-2.5); ABG HCO3 26.5 MMOL/L (20-26); ABG Oxygen Saturation 96.9 % (95-100); ABG PCO2 43.9 MM HG (35-48); ABG PH 7.404 (7.35-7.45); ABG PO2 88.8 MM HG (80-95); ABG TCO2 24.8 MMOL/L (23-27)
[2020-08-06] MEDS: SERTRALINE 100 MG TABLET PO SCH (08:39)
[2020-08-06] MEDS: FEBUXOSTAT 80 MG TABLET PO SCH (08:40)
[2020-08-06] MEDS: LEVOTHYROXINE 25 MCG TABLET PO SCH (08:40)
[2020-08-06] MEDS: ZINC GLUCONATE 50 MG TABLET PO SCH (08:40)
[2020-08-06] MEDS: CLOPIDOGREL 75 MG TABLET PO SCH (08:42)
[2020-08-06] MEDS: DEXAMETHASONE 4 MG/1 ML VIAL IV SCH (08:42)
[2020-08-06] MEDS: FAMOTIDINE 20 MG TABLET PO SCH (08:43)
[2020-08-06] MEDS: CHOLECALCIFEROL 400 UNIT TABLET PO SCH (08:43)
[2020-08-06] MEDS: lisinopriL 5 MG TABLET PO SCH (08:45)
[2020-08-06] MEDS: METOPROLOL TARTRATE 25 MG TABLET PO SCH ×3 (08:45→22:04)
[2020-08-06] MEDS: ISOSORBIDE MONONITRATE 60 MG TABLET PO SCH (08:45)
[2020-08-06] MEDS: ASCORBIC ACID 500 MG TABLET PO SCH (10:06)
[2020-08-06] MEDS ORDERED: FUROSEMIDE 40 MG/4 ML VIAL IV ONE (14:15)
[2020-08-06] MEDS: hydrALAZINE 20 MG/1 ML VIAL IV PRN (18:34)
[2020-08-06] MEDS: ATORVASTATIN 40 MG TABLET PO SCH (20:09)
[2020-08-07] MEDS: INSULIN REGULAR 100 UNIT/ML SUBCUT SCH ×4 (00:27→17:23)
[2020-08-07] MEDS: fentaNYL INJ 1,250 MCG in SODIUM CHLORIDE 0.9% 225 ML IV PRN ×4 (00:50→20:30)
[2020-08-07] MEDS: ALBUTEROL INHALER 18 GM INH SCH ×4 (01:44→18:09)
[2020-08-07 04:10] LABS: Basophils % 0.2 % (0.0-0.8); Eosinophils % 0.4 % (0.00-10.9); Hematocrit 31.2 VOL% (42.0-52.0); Hemoglobin 9.7 GM/DL (14.0-18.0); Immature Granulocytes % 3.1 %; Lymphocytes % 10.5 % (21.2-54.2); Mean Corpuscular HGB Conc 31.1 GM/DL (32-36); Mean Corpuscular Volume 97.8 FL (87-102); Mean Platelet Volume 10.3 FL (9.6-12.0); Monocytes % 12.2 % (1.7-12.7); Neutrophils % 73.6 % (38.7-73.9); Platelet Count 357 T/CUMM (130-400); Red Blood Count 3.19 MC/CUMM (3.8-5.5); Red Cell Distribution Width 16.3 % (9.3-17.3); White Blood Count 9.6 T/CUMM (4-12)
[2020-08-07] MEDS: ENOXAPARIN 80 MG/0.8 ML SYRINGE SUBCUT SCH ×2 (04:10→15:57)
[2020-08-07 04:45] LABS: ABG Base Excess 1.6 MMOL/L (-2.5-2.5); ABG HCO3 25.8 MMOL/L (20-26); ABG Oxygen Saturation 97.5 % (95-100); ABG PCO2 47.8 MM HG (35-48); ABG PH 7.366 (7.35-7.45); ABG PO2 99.3 MM HG (80-95); ABG TCO2 25.1 MMOL/L (23-27); Allen Test Positive; Pt O2 Delivery Device Ventilator
[2020-08-07 04:53] LABS: Calcium 8.5 MG/DL (8.5-10.1); Osmolality,Calculated 303.7 MOS/KG (273-304)
[2020-08-07] MEDS: hydrALAZINE 20 MG/1 ML VIAL IV PRN ×2 (05:51→20:51)
[2020-08-07] MEDS: SERTRALINE 100 MG TABLET PO SCH (08:45)
[2020-08-07] MEDS: ZINC GLUCONATE 50 MG TABLET PO SCH (08:45)
[2020-08-07] MEDS: ASCORBIC ACID 500 MG TABLET PO SCH (08:45)
[2020-08-07] MEDS: LEVOTHYROXINE 25 MCG TABLET PO SCH (08:45)
[2020-08-07] MEDS: FEBUXOSTAT 80 MG TABLET PO SCH (08:45)
[2020-08-07] MEDS: CHOLECALCIFEROL 400 UNIT TABLET PO SCH (08:45)
[2020-08-07] MEDS: FAMOTIDINE 20 MG TABLET PO SCH (08:45)
[2020-08-07] MEDS: METOPROLOL TARTRATE 25 MG TABLET PO SCH ×2 (08:46→21:02)
[2020-08-07] MEDS: lisinopriL 5 MG TABLET PO SCH (08:46)
[2020-08-07] MEDS: CLOPIDOGREL 75 MG TABLET PO SCH (08:46)
[2020-08-07] MEDS: ISOSORBIDE MONONITRATE 60 MG TABLET PO SCH (08:46)
[2020-08-07] MEDS: POTASSIUM CHLORIDE 20 MEQ/15 ML UDCUP PER TUBE PRN (08:51)
[2020-08-07] MEDS ORDERED: FUROSEMIDE 40 MG/4 ML VIAL IV ONE (11:11)
[2020-08-07] MEDS: ATORVASTATIN 40 MG TABLET PO SCH (21:02)
[2020-08-08] MEDS: INSULIN REGULAR 100 UNIT/ML SUBCUT SCH ×4 (01:04→17:27)
[2020-08-08] MEDS: ALBUTEROL INHALER 18 GM INH SCH ×4 (01:18→18:11)
[2020-08-08] MEDS: ENOXAPARIN 80 MG/0.8 ML SYRINGE SUBCUT SCH ×2 (03:40→15:03)
[2020-08-08 04:24] LABS: Basophils % 0.2 % (0.0-0.8); Eosinophils # 0.1 10*3/uL (0.0-0.87); Eosinophils % 0.6 % (0.00-10.9); Hematocrit 30.8 VOL% (42.0-52.0); Hemoglobin 9.4 GM/DL (14.0-18.0); Immature Granulocytes % 1.6 %; Immature Granulocytes Absolute 0.18 #; Lymphocytes # 0.7 10*3/uL (1.4-4.0); Lymphocytes % 6.5 % (21.2-54.2); Mean Corpuscular HGB Conc 30.5 GM/DL (32-36); Mean Corpuscular Volume 99.4 FL (87-102); Mean Platelet Volume 10.5 FL (9.6-12.0); Monocytes % 9.5 % (1.7-12.7); Neutrophils % 81.6 % (38.7-73.9); Platelet Count 312 T/CUMM (130-400); Red Cell Distribution Width 16.4 % (9.3-17.3); White Blood Count 11.4 T/CUMM (4-12)
[2020-08-08 04:28] LABS: Calcium 8.3 MG/DL (8.5-10.1); Osmolality,Calculated 299.8 MOS/KG (273-304)
[2020-08-08 04:46] LABS: ABG Base Excess 1.2 MMOL/L (-2.5-2.5); ABG HCO3 26.4 MMOL/L (20-26); ABG Oxygen Saturation 92.7 % (95-100); ABG PCO2 44.5 MM HG (35-48); ABG PH 7.391 (7.35-7.45); ABG PO2 67.5 MM HG (80-95); ABG TCO2 27.8 MMOL/L (23-27); Allen Test Positive; Pt O2 Delivery Device Ventilator
[2020-08-08 04:47] LABS: Ferritin 338.5 ng/ml (26-388)
[2020-08-08] MEDS: fentaNYL INJ 1,250 MCG in SODIUM CHLORIDE 0.9% 225 ML IV PRN ×3 (06:11→22:47)
[2020-08-08] MEDS: SERTRALINE 100 MG TABLET PO SCH (09:34)
[2020-08-08] MEDS: CLOPIDOGREL 75 MG TABLET PO SCH (09:34)
[2020-08-08] MEDS: FEBUXOSTAT 80 MG TABLET PO SCH (09:34)
[2020-08-08] MEDS: ISOSORBIDE MONONITRATE 60 MG TABLET PO SCH (09:34)
[2020-08-08] MEDS: CHOLECALCIFEROL 400 UNIT TABLET PO SCH (09:34)
[2020-08-08] MEDS: FAMOTIDINE 20 MG TABLET PO SCH (09:34)
[2020-08-08] MEDS: ASCORBIC ACID 500 MG TABLET PO SCH (09:34)
[2020-08-08] MEDS: LEVOTHYROXINE 25 MCG TABLET PO SCH (09:34)
[2020-08-08] MEDS: ZINC GLUCONATE 50 MG TABLET PO SCH (09:35)
[2020-08-08] MEDS: lisinopriL 10 MG TABLET PO SCH (09:35)
[2020-08-08] MEDS: METOPROLOL TARTRATE 25 MG TABLET PO SCH ×2 (09:35→20:09)
[2020-08-08] MEDS ORDERED: FUROSEMIDE 40 MG/4 ML VIAL IV ONE (11:07)
[2020-08-08] MEDS: METOCLOPRAMIDE 10 MG/2 ML VIAL IV SCH ×3 (12:02→23:52)
[2020-08-08] MEDS ORDERED: HYDROmorphone 2 MG/1 ML VIAL IV PRN (16:04)
[2020-08-08] MEDS: hydrALAZINE 20 MG/1 ML VIAL IV PRN (18:09)
[2020-08-08] MEDS: ATORVASTATIN 40 MG TABLET PO SCH (20:09)
[2020-08-08] MEDS ORDERED: fentaNYL 100 MCG/2 ML VIAL IV ONE (22:32)
[2020-08-09] MEDS: INSULIN REGULAR 100 UNIT/ML SUBCUT SCH ×4 (00:36→18:01)
[2020-08-09 00:40] LABS: ABG Base Excess -1.9 MMOL/L (-2.5-2.5); ABG HCO3 26.2 MMOL/L (20-26); ABG Oxygen Saturation 91.6 % (95-100); ABG PCO2 61.5 MM HG (35-48); ABG PH 7.247 (7.35-7.45); ABG PO2 72.1 MM HG (80-95); ABG TCO2 28.1 MMOL/L (23-27)
[2020-08-09] MEDS: PIPERACILLIN/TAZOBACTAM 3,375 MG in SODIUM CHLORIDE 0.9% 100 ML IV SCH ×3 (02:26→18:07)
[2020-08-09] MEDS: ALBUTEROL INHALER 18 GM INH SCH ×4 (02:28→18:57)
[2020-08-09] MEDS: ENOXAPARIN 80 MG/0.8 ML SYRINGE SUBCUT SCH ×2 (03:12→14:52)
[2020-08-09 04:02] LABS: Basophils % 0.2 % (0.0-0.8); Eosinophils % 0.1 % (0.00-10.9); Hematocrit 32.9 VOL% (42.0-52.0); Hemoglobin 10.3 GM/DL (14.0-18.0); Immature Granulocytes % 0.9 %; Immature Granulocytes Absolute 0.16 #; Lymphocytes # 0.5 10*3/uL (1.4-4.0); Lymphocytes % 2.7 % (21.2-54.2); Mean Corpuscular HGB Conc 31.3 GM/DL (32-36); Mean Corpuscular Volume 99.1 FL (87-102); Mean Platelet Volume 10.6 FL (9.6-12.0); Monocytes % 5.9 % (1.7-12.7); Neutrophils % 90.2 % (38.7-73.9); Platelet Count 316 T/CUMM (130-400); Red Blood Count 3.32 MC/CUMM (3.8-5.5); Red Cell Distribution Width 16.5 % (9.3-17.3); White Blood Count 18.1 T/CUMM (4-12)
[2020-08-09 04:48] LABS: Calcium 8.7 MG/DL (8.5-10.1); Osmolality,Calculated 297.8 MOS/KG (273-304)
[2020-08-09 05:28] LABS: Lymphocytes 1 % (20-55); Segmented Neutrophils 95 % (50-85); Total Cells Counted 100
[2020-08-09 05:29] LABS: Anisocytosis Slight; Macrocytosis Slight; Platelet Estimate Increased
[2020-08-09 05:30] LABS: Polychromasia Slight; Spherocytes Few
[2020-08-09] MEDS: VANCOMYCIN INJ 2,000 MG in SODIUM CHLORIDE 0.9% 500 ML IV SCH ×2 (05:36→18:12)
[2020-08-09] MEDS: METOCLOPRAMIDE 10 MG/2 ML VIAL IV SCH ×3 (05:36→18:08)
[2020-08-09] MEDS: fentaNYL INJ 1,250 MCG in SODIUM CHLORIDE 0.9% 225 ML IV PRN ×3 (06:35→21:25)
[2020-08-09 07:37] LABS: ABG Base Excess -1.6 MMOL/L (-2.5-2.5); ABG Oxygen Saturation 93.1 % (95-100); ABG PCO2 59.2 MM HG (35-48); ABG PH 7.257 (7.35-7.45); ABG PO2 76.5 MM HG (80-95); ABG TCO2 24.6 MMOL/L (23-27); Allen Test Positive; Pt O2 Delivery Device Ventilator
[2020-08-09] MEDS: FAMOTIDINE 20 MG TABLET PO SCH (08:43)
[2020-08-09] MEDS: ASCORBIC ACID 500 MG TABLET PO SCH (08:43)
[2020-08-09] MEDS: METOPROLOL TARTRATE 25 MG TABLET PO SCH ×2 (08:44→20:28)
[2020-08-09] MEDS: ZINC GLUCONATE 50 MG TABLET PO SCH (08:44)
[2020-08-09] MEDS: LEVOTHYROXINE 25 MCG TABLET PO SCH (08:44)
[2020-08-09] MEDS: lisinopriL 10 MG TABLET PO SCH (08:44)
[2020-08-09] MEDS: ISOSORBIDE MONONITRATE 60 MG TABLET PO SCH (08:44)
[2020-08-09] MEDS: CHOLECALCIFEROL 400 UNIT TABLET PO SCH (08:44)
[2020-08-09] MEDS: SERTRALINE 100 MG TABLET PO SCH (08:44)
[2020-08-09] MEDS: CLOPIDOGREL 75 MG TABLET PO SCH (08:44)
[2020-08-09] MEDS: cloNIDine 0.3 MG/24 HR PATCH TRANSDERM SCH (08:45)
[2020-08-09] MEDS: FEBUXOSTAT 80 MG TABLET PO SCH (08:50)
[2020-08-09] MEDS: ROCURONIUM 500 MG in SODIUM CHLORIDE 0.9% 500 ML IV PRN ×4 (10:09→22:26)
[2020-08-09] MEDS ORDERED: SODIUM CHLORIDE 0.9% 500 ML IV ONE (15:51)
[2020-08-09] MEDS ORDERED: NOREPINEPHRINE 8 MG in SODIUM CHLORIDE 0.9% 242 ML IV PRN (16:14)
[2020-08-09] MEDS: ATORVASTATIN 40 MG TABLET PO SCH (20:28)
[2020-08-10] MEDS: ALBUTEROL INHALER 18 GM INH SCH ×4 (01:49→19:49)
[2020-08-10] MEDS: INSULIN REGULAR 100 UNIT/ML SUBCUT SCH ×4 (01:49→18:21)
[2020-08-10] MEDS: METOCLOPRAMIDE 10 MG/2 ML VIAL IV SCH ×4 (01:50→17:35)
[2020-08-10] MEDS: PIPERACILLIN/TAZOBACTAM 3,375 MG in SODIUM CHLORIDE 0.9% 100 ML IV SCH ×3 (01:50→17:35)
[2020-08-10] MEDS: ENOXAPARIN 80 MG/0.8 ML SYRINGE SUBCUT SCH ×2 (02:10→14:21)
[2020-08-10] MEDS: ROCURONIUM 500 MG in SODIUM CHLORIDE 0.9% 500 ML IV PRN ×2 (02:56→07:45)
[2020-08-10 04:55] LABS: ABG Base Excess -2.9 MMOL/L (-2.5-2.5); ABG Oxygen Saturation 97.6 % (95-100); ABG PCO2 40.9 MM HG (35-48); ABG TCO2 20.4 MMOL/L (23-27); Allen Test Positive; Pt O2 Delivery Device Ventilator
[2020-08-10] MEDS: fentaNYL INJ 1,250 MCG in SODIUM CHLORIDE 0.9% 225 ML IV PRN ×3 (05:01→20:56)
[2020-08-10 05:02] LABS: Basophils % 0.2 % (0.0-0.8); Eosinophils # 0.1 10*3/uL (0.0-0.87); Eosinophils % 0.9 % (0.00-10.9); Hematocrit 27.7 VOL% (42.0-52.0); Hemoglobin 8.6 GM/DL (14.0-18.0); Immature Granulocytes % 0.9 %; Immature Granulocytes Absolute 0.12 #; Lymphocytes # 0.3 10*3/uL (1.4-4.0); Mean Corpuscular Volume 98.6 FL (87-102); Mean Platelet Volume 11.1 FL (9.6-12.0); Monocytes % 4.9 % (1.7-12.7); Neutrophils % 91.1 % (38.7-73.9); Platelet Count 247 T/CUMM (130-400); Red Blood Count 2.81 MC/CUMM (3.8-5.5); Red Cell Distribution Width 16.4 % (9.3-17.3); White Blood Count 13.9 T/CUMM (4-12)
[2020-08-10 05:03] LABS: Calcium 8.2 MG/DL (8.5-10.1); Osmolality,Calculated 299.8 MOS/KG (273-304)
[2020-08-10 05:24] LABS: Band Neutrophils 1 % (0-10); Eosinophils 1 % (0-10); Hypochromasia Slight; Lymphocytes 1 % (20-55); Metamyelocytes 1 %; Segmented Neutrophils 93 % (50-85); Total Cells Counted 100
[2020-08-10 05:25] LABS: Microcytosis 1+; Ovalocytes Slight; Platelet Estimate Normal
[2020-08-10] MEDS: VANCOMYCIN INJ 2,000 MG in SODIUM CHLORIDE 0.9% 500 ML IV SCH (06:17)
[2020-08-10] MEDS: METOPROLOL TARTRATE 25 MG TABLET PO SCH ×2 (09:28→20:05)
[2020-08-10] MEDS: CLOPIDOGREL 75 MG TABLET PO SCH (09:28)
[2020-08-10] MEDS: LEVOTHYROXINE 25 MCG TABLET PO SCH (09:28)
[2020-08-10] MEDS: FAMOTIDINE 20 MG TABLET PO SCH (09:28)
[2020-08-10] MEDS: ASCORBIC ACID 500 MG TABLET PO SCH (09:29)
[2020-08-10] MEDS: ZINC GLUCONATE 50 MG TABLET PO SCH (09:29)
[2020-08-10] MEDS: FEBUXOSTAT 80 MG TABLET PO SCH (09:29)
[2020-08-10] MEDS: SERTRALINE 100 MG TABLET PO SCH (09:29)
[2020-08-10] MEDS: CHOLECALCIFEROL 400 UNIT TABLET PO SCH (09:29)
[2020-08-10] MEDS: methylPREDNISolone SOD SUC 40 MG/1 ML VIAL IV SCH (14:19)
[2020-08-10] MEDS: ATORVASTATIN 40 MG TABLET PO SCH (20:05)
[2020-08-10] MEDS ORDERED: LABETALOL 20 MG/4 ML SYRINGE IV ONE (22:49)
[2020-08-10] MEDS ORDERED: hydrALAZINE 20 MG/1 ML VIAL IV ONE (22:51)
[2020-08-11] MEDS: INSULIN REGULAR 100 UNIT/ML SUBCUT SCH ×4 (00:01→17:43)
[2020-08-11] MEDS: methylPREDNISolone SOD SUC 40 MG/1 ML VIAL IV SCH ×2 (00:02→11:44)
[2020-08-11] MEDS: METOCLOPRAMIDE 10 MG/2 ML VIAL IV SCH ×4 (00:02→17:43)
[2020-08-11] MEDS: ALBUTEROL INHALER 18 GM INH SCH ×4 (00:03→20:19)
[2020-08-11] MEDS: PIPERACILLIN/TAZOBACTAM 3,375 MG in SODIUM CHLORIDE 0.9% 100 ML IV SCH ×2 (00:30→08:46)
[2020-08-11] MEDS: ENOXAPARIN 80 MG/0.8 ML SYRINGE SUBCUT SCH ×2 (02:51→14:48)
[2020-08-11 03:53] LABS: ABG Base Excess -3.2 MMOL/L (-2.5-2.5); ABG HCO3 21.7 MMOL/L (20-26); ABG Oxygen Saturation 97.8 % (95-100); ABG PCO2 37.3 MM HG (35-48); ABG PH 7.372 (7.35-7.45); ABG TCO2 20.1 MMOL/L (23-27); Allen Test Positive; Pt O2 Delivery Device Ventilator
[2020-08-11 04:10] LABS: Basophils % 0.1 % (0.0-0.8); Hematocrit 27.2 VOL% (42.0-52.0); Hemoglobin 8.4 GM/DL (14.0-18.0); Immature Granulocytes % 1.2 %; Immature Granulocytes Absolute 0.13 #; Lymphocytes # 0.2 10*3/uL (1.4-4.0); Lymphocytes % 2.1 % (21.2-54.2); Mean Corpuscular HGB Conc 30.9 GM/DL (32-36); Mean Corpuscular Volume 98.2 FL (87-102); Mean Platelet Volume 10.9 FL (9.6-12.0); Monocytes % 3.1 % (1.7-12.7); Neutrophils % 93.5 % (38.7-73.9); Platelet Count 233 T/CUMM (130-400); Red Blood Count 2.77 MC/CUMM (3.8-5.5); Red Cell Distribution Width 16.4 % (9.3-17.3); White Blood Count 10.7 T/CUMM (4-12)
[2020-08-11] MEDS: fentaNYL INJ 1,250 MCG in SODIUM CHLORIDE 0.9% 225 ML IV PRN ×4 (04:19→20:30)
[2020-08-11 04:29] LABS: Calcium 8.2 MG/DL (8.5-10.1)
[2020-08-11 04:31] LABS: Band Neutrophils 5 % (0-10); Hypochromasia Slight; Lymphocytes 2 % (20-55); Segmented Neutrophils 92 % (50-85); Total Cells Counted 100
[2020-08-11 04:32] LABS: Anisocytosis 1+; Microcytosis 1+; Ovalocytes Slight; Platelet Estimate Normal; Polychromasia Slight
[2020-08-11] MEDS: LEVOTHYROXINE 25 MCG TABLET PO SCH (08:05)
[2020-08-11] MEDS: FEBUXOSTAT 80 MG TABLET PO SCH (08:05)
[2020-08-11] MEDS: FAMOTIDINE 20 MG TABLET PO SCH (08:05)
[2020-08-11] MEDS: ZINC GLUCONATE 50 MG TABLET PO SCH (08:06)
[2020-08-11] MEDS: ASCORBIC ACID 500 MG TABLET PO SCH (08:06)
[2020-08-11] MEDS: SERTRALINE 100 MG TABLET PO SCH (08:06)
[2020-08-11] MEDS: CLOPIDOGREL 75 MG TABLET PO SCH (08:06)
[2020-08-11] MEDS: CHOLECALCIFEROL 400 UNIT TABLET PO SCH (08:06)
[2020-08-11] MEDS ORDERED: FUROSEMIDE 40 MG/4 ML VIAL IV ONE (08:17)
[2020-08-11] MEDS: LEVOFLOXACIN INJ 750 MG in PREMIX 1 EACH IV SCH (12:49)
[2020-08-11] MEDS: METOPROLOL TARTRATE 25 MG TABLET PO SCH ×2 (14:06→20:30)
[2020-08-11] MEDS: ATORVASTATIN 40 MG TABLET PO SCH (20:32)
[2020-08-12] MEDS: INSULIN REGULAR 100 UNIT/ML SUBCUT SCH ×4 (01:24→17:57)
[2020-08-12] MEDS: METOCLOPRAMIDE 10 MG/2 ML VIAL IV SCH ×4 (01:24→17:57)
[2020-08-12] MEDS: methylPREDNISolone SOD SUC 40 MG/1 ML VIAL IV SCH ×2 (01:24→12:30)
[2020-08-12] MEDS: ALBUTEROL INHALER 18 GM INH SCH ×4 (01:24→18:31)
[2020-08-12] MEDS: fentaNYL INJ 1,250 MCG in SODIUM CHLORIDE 0.9% 225 ML IV PRN ×3 (03:27→20:58)
[2020-08-12] MEDS: ENOXAPARIN 80 MG/0.8 ML SYRINGE SUBCUT SCH ×2 (04:41→14:08)
[2020-08-12 04:53] LABS: ABG HCO3 21.9 MMOL/L (20-26); ABG Oxygen Saturation 99.1 % (95-100); ABG PCO2 39.3 MM HG (35-48); ABG PH 7.359 (7.35-7.45); ABG TCO2 20.3 MMOL/L (23-27)
[2020-08-12 06:29] LABS: Basophils % 0.1 % (0.0-0.8); Hematocrit 28.8 VOL% (42.0-52.0); Hemoglobin 8.9 GM/DL (14.0-18.0); Immature Granulocytes % 1.5 %; Immature Granulocytes Absolute 0.14 #; Lymphocytes # 0.5 10*3/uL (1.4-4.0); Lymphocytes % 4.8 % (21.2-54.2); Mean Corpuscular HGB Conc 30.9 GM/DL (32-36); Mean Corpuscular Volume 99.3 FL (87-102); Mean Platelet Volume 10.7 FL (9.6-12.0); Monocytes % 5.4 % (1.7-12.7); Neutrophils % 88.2 % (38.7-73.9); Platelet Count 253 T/CUMM (130-400); Red Cell Distribution Width 16.4 % (9.3-17.3); White Blood Count 9.3 T/CUMM (4-12)
[2020-08-12 06:44] LABS: Calcium 8.8 MG/DL (8.5-10.1); Osmolality,Calculated 312.6 MOS/KG (273-304)
[2020-08-12 07:44] LABS: Band Neutrophils 1 % (0-10); Hypochromasia 1+; Lymphocytes 2 % (20-55); Microcytosis 1+; Ovalocytes Slight; Platelet Estimate Adequate; Segmented Neutrophils 93 % (50-85); Total Cells Counted 100
[2020-08-12] MEDS: FEBUXOSTAT 80 MG TABLET PO SCH (08:24)
[2020-08-12] MEDS: SERTRALINE 100 MG TABLET PO SCH (08:24)
[2020-08-12] MEDS: CLOPIDOGREL 75 MG TABLET PO SCH (08:24)
[2020-08-12] MEDS: LEVOTHYROXINE 25 MCG TABLET PO SCH (08:24)
[2020-08-12] MEDS: CHOLECALCIFEROL 400 UNIT TABLET PO SCH (08:24)
[2020-08-12] MEDS: ZINC GLUCONATE 50 MG TABLET PO SCH (08:25)
[2020-08-12] MEDS: ASCORBIC ACID 500 MG TABLET PO SCH (08:25)
[2020-08-12] MEDS: METOPROLOL TARTRATE 25 MG TABLET PO SCH ×2 (08:25→20:21)
[2020-08-12] MEDS: FAMOTIDINE 20 MG TABLET PO SCH (08:25)
[2020-08-12] MEDS: LEVOFLOXACIN INJ 750 MG in PREMIX 1 EACH IV SCH (12:30)
[2020-08-12] MEDS: ATORVASTATIN 40 MG TABLET PO SCH (20:11)
[2020-08-13] MEDS: INSULIN REGULAR 100 UNIT/ML SUBCUT SCH ×4 (00:07→17:47)
[2020-08-13] MEDS: METOCLOPRAMIDE 10 MG/2 ML VIAL IV SCH ×3 (00:19→12:19)
[2020-08-13] MEDS: methylPREDNISolone SOD SUC 40 MG/1 ML VIAL IV SCH ×2 (00:19→12:23)
[2020-08-13] MEDS: ENOXAPARIN 80 MG/0.8 ML SYRINGE SUBCUT SCH ×2 (04:12→14:41)
[2020-08-13 04:21] LABS: Basophils % 0.3 % (0.0-0.8); Hematocrit 30.2 VOL% (42.0-52.0); Hemoglobin 9.4 GM/DL (14.0-18.0); Immature Granulocytes Absolute 0.22 #; Lymphocytes # 0.6 10*3/uL (1.4-4.0); Lymphocytes % 5.5 % (21.2-54.2); Mean Corpuscular HGB Conc 31.1 GM/DL (32-36); Mean Corpuscular Volume 98.1 FL (87-102); Mean Platelet Volume 10.9 FL (9.6-12.0); Monocytes % 9.7 % (1.7-12.7); Neutrophils % 82.5 % (38.7-73.9); Platelet Count 255 T/CUMM (130-400); Red Blood Count 3.08 MC/CUMM (3.8-5.5); Red Cell Distribution Width 16.3 % (9.3-17.3); White Blood Count 10.9 T/CUMM (4-12)
[2020-08-13 04:31] LABS: Allen Test Positive; Pt O2 Delivery Device Ventilator
[2020-08-13 04:33] LABS: ABG Base Excess -2.4 MMOL/L (-2.5-2.5); ABG HCO3 22.4 MMOL/L (20-26); ABG Oxygen Saturation 97.4 % (95-100); ABG PCO2 38.4 MM HG (35-48); ABG PH 7.375 (7.35-7.45); ABG PO2 98.9 MM HG (80-95); ABG TCO2 20.8 MMOL/L (23-27)
[2020-08-13 04:53] LABS: Calcium 8.9 MG/DL (8.5-10.1); Osmolality,Calculated 312.4 MOS/KG (273-304)
[2020-08-13] MEDS: fentaNYL INJ 1,250 MCG in SODIUM CHLORIDE 0.9% 225 ML IV PRN ×2 (08:10→17:28)
[2020-08-13] MEDS: ZINC GLUCONATE 50 MG TABLET PO SCH (08:11)
[2020-08-13] MEDS: FEBUXOSTAT 80 MG TABLET PO SCH (08:12)
[2020-08-13] MEDS: CLOPIDOGREL 75 MG TABLET PO SCH (08:12)
[2020-08-13] MEDS: ASCORBIC ACID 500 MG TABLET PO SCH (08:12)
[2020-08-13] MEDS: CHOLECALCIFEROL 400 UNIT TABLET PO SCH (08:12)
[2020-08-13] MEDS: SERTRALINE 100 MG TABLET PO SCH (08:12)
[2020-08-13] MEDS: ALBUTEROL INHALER 18 GM INH SCH ×4 (08:13→21:03)
[2020-08-13] MEDS: FAMOTIDINE 20 MG TABLET PO SCH (08:13)
[2020-08-13] MEDS: LEVOTHYROXINE 25 MCG TABLET PO SCH (08:13)
[2020-08-13] MEDS: amLODIPine 10 MG TABLET PO SCH (08:50)
[2020-08-13] MEDS ORDERED: cefTRIAXone 1,000 MG in SYRINGE 1 EACH IV SCH (11:30)
[2020-08-13] MEDS: METOPROLOL TARTRATE 25 MG TABLET PO SCH (11:58)
[2020-08-13] MEDS: cloNIDine 0.1 MG TABLET PO PRN (12:10)
[2020-08-13] MEDS: LEVOFLOXACIN INJ 750 MG in PREMIX 1 EACH IV SCH (12:26)
[2020-08-13] MEDS ORDERED: MIDAZOLAM 2 MG/2 ML VIAL IV ONE (13:00)
[2020-08-13] MEDS: LINEZOLID INJ 600 MG in PREMIX 1 EACH IV SCH (14:41)
[2020-08-13] MEDS: ATORVASTATIN 40 MG TABLET PO SCH (20:53)
[2020-08-14] MEDS: ALBUTEROL INHALER 18 GM INH SCH ×4 (01:29→19:30)
[2020-08-14] MEDS: INSULIN REGULAR 100 UNIT/ML SUBCUT SCH ×4 (01:29→17:46)
[2020-08-14] MEDS: methylPREDNISolone SOD SUC 40 MG/1 ML VIAL IV SCH ×2 (01:29→12:02)
[2020-08-14] MEDS: LINEZOLID INJ 600 MG in PREMIX 1 EACH IV SCH ×2 (03:49→16:27)
[2020-08-14] MEDS: ENOXAPARIN 80 MG/0.8 ML SYRINGE SUBCUT SCH ×2 (03:49→16:28)
[2020-08-14 04:38] LABS: ABG Base Excess -2.3 MMOL/L (-2.5-2.5); ABG HCO3 22.9 MMOL/L (20-26); ABG Oxygen Saturation 98.8 % (95-100); ABG PH 7.365 (7.35-7.45); ABG PO2 168.6 MM HG (80-95); ABG TCO2 24.2 MMOL/L (23-27); Allen Test Positive; Pt O2 Delivery Device Ventilator
[2020-08-14 04:57] LABS: Basophils % 0.2 % (0.0-0.8); Eosinophils % 0.1 % (0.00-10.9); Hematocrit 28.4 VOL% (42.0-52.0); Hemoglobin 8.7 GM/DL (14.0-18.0); Immature Granulocytes % 1.7 %; Immature Granulocytes Absolute 0.14 #; Lymphocytes # 0.6 10*3/uL (1.4-4.0); Lymphocytes % 6.8 % (21.2-54.2); Mean Corpuscular HGB Conc 30.6 GM/DL (32-36); Mean Platelet Volume 10.5 FL (9.6-12.0); Monocytes % 11.9 % (1.7-12.7); Neutrophils % 79.3 % (38.7-73.9); Platelet Count 220 T/CUMM (130-400); Red Blood Count 2.87 MC/CUMM (3.8-5.5); Red Cell Distribution Width 16.2 % (9.3-17.3); White Blood Count 8.4 T/CUMM (4-12)
[2020-08-14] MEDS: fentaNYL INJ 1,250 MCG in SODIUM CHLORIDE 0.9% 225 ML IV PRN ×2 (05:09→15:30)
[2020-08-14 05:19] LABS: Calcium 8.5 MG/DL (8.5-10.1); Osmolality,Calculated 307.6 MOS/KG (273-304)
[2020-08-14 05:23] LABS: Anisocytosis 1+; Platelet Estimate Normal
[2020-08-14 05:24] LABS: Macrocytosis Slight
[2020-08-14] MEDS: ASCORBIC ACID 500 MG TABLET PO SCH (08:50)
[2020-08-14] MEDS: FAMOTIDINE 20 MG TABLET PO SCH (08:50)
[2020-08-14] MEDS: CHOLECALCIFEROL 400 UNIT TABLET PO SCH (08:50)
[2020-08-14] MEDS: ZINC GLUCONATE 50 MG TABLET PO SCH (08:50)
[2020-08-14] MEDS: CLOPIDOGREL 75 MG TABLET PO SCH (08:50)
[2020-08-14] MEDS: LEVOTHYROXINE 25 MCG TABLET PO SCH (08:50)
[2020-08-14] MEDS: FEBUXOSTAT 80 MG TABLET PO SCH (08:50)
[2020-08-14] MEDS ORDERED: FUROSEMIDE 40 MG/4 ML VIAL IV ONE (08:52)
[2020-08-14] MEDS: amLODIPine 10 MG TABLET PO SCH (08:52)
[2020-08-14] MEDS: ZINC OXIDE PASTE 113 GM TUBE TOP SCH ×2 (12:03→21:01)
[2020-08-14] MEDS: LEVOFLOXACIN INJ 750 MG in PREMIX 1 EACH IV SCH (12:03)
[2020-08-14] MEDS: cloNIDine 0.1 MG TABLET PO PRN ×2 (16:28→20:52)
[2020-08-14] MEDS: ATORVASTATIN 40 MG TABLET PO SCH (20:51)
[2020-08-15] MEDS: methylPREDNISolone SOD SUC 40 MG/1 ML VIAL IV SCH ×3 (00:01→23:59)
[2020-08-15] MEDS: ALBUTEROL INHALER 18 GM INH SCH ×4 (00:02→19:22)
[2020-08-15] MEDS: INSULIN REGULAR 100 UNIT/ML SUBCUT SCH ×5 (00:36→23:59)
[2020-08-15] MEDS: fentaNYL INJ 1,250 MCG in SODIUM CHLORIDE 0.9% 225 ML IV PRN ×3 (00:46→20:30)
[2020-08-15] MEDS: LINEZOLID INJ 600 MG in PREMIX 1 EACH IV SCH ×2 (02:43→17:30)
[2020-08-15] MEDS: ENOXAPARIN 80 MG/0.8 ML SYRINGE SUBCUT SCH ×2 (02:44→16:50)
[2020-08-15 03:22] LABS: ABG Base Excess -0.3 MMOL/L (-2.5-2.5); ABG HCO3 23.7 MMOL/L (20-26); ABG Oxygen Saturation 95.6 % (95-100); ABG PCO2 35.9 MM HG (35-48); ABG PH 7.437 (7.35-7.45); ABG PO2 80.6 MM HG (80-95); ABG TCO2 24.8 MMOL/L (23-27); Allen Test Positive; Pt O2 Delivery Device Ventilator
[2020-08-15] MEDS: cloNIDine 0.1 MG TABLET PO PRN ×2 (04:00→21:02)
[2020-08-15 04:01] LABS: Basophils % 0.1 % (0.0-0.8); Eosinophils % 0.1 % (0.00-10.9); Hematocrit 27.5 VOL% (42.0-52.0); Hemoglobin 8.8 GM/DL (14.0-18.0); Immature Granulocytes % 1.8 %; Immature Granulocytes Absolute 0.15 #; Lymphocytes # 0.5 10*3/uL (1.4-4.0); Lymphocytes % 5.9 % (21.2-54.2); Mean Corpuscular Volume 96.5 FL (87-102); Mean Platelet Volume 10.4 FL (9.6-12.0); Monocytes % 7.3 % (1.7-12.7); Neutrophils % 84.8 % (38.7-73.9); Platelet Count 204 T/CUMM (130-400); Red Blood Count 2.85 MC/CUMM (3.8-5.5); Red Cell Distribution Width 15.9 % (9.3-17.3); White Blood Count 8.1 T/CUMM (4-12)
[2020-08-15 04:22] LABS: Calcium 8.6 MG/DL (8.5-10.1); Osmolality,Calculated 307.8 MOS/KG (273-304)
[2020-08-15] MEDS: FAMOTIDINE 20 MG TABLET PO SCH (08:42)
[2020-08-15] MEDS: ZINC GLUCONATE 50 MG TABLET PO SCH (08:42)
[2020-08-15] MEDS: ASCORBIC ACID 500 MG TABLET PO SCH (08:42)
[2020-08-15] MEDS: amLODIPine 10 MG TABLET PO SCH (08:42)
[2020-08-15] MEDS: CLOPIDOGREL 75 MG TABLET PO SCH (08:43)
[2020-08-15] MEDS: CHOLECALCIFEROL 400 UNIT TABLET PO SCH (08:43)
[2020-08-15] MEDS: LEVOTHYROXINE 25 MCG TABLET PO SCH (08:43)
[2020-08-15] MEDS: FEBUXOSTAT 80 MG TABLET PO SCH (08:43)
[2020-08-15] MEDS: ZINC OXIDE PASTE 113 GM TUBE TOP SCH (08:46)
[2020-08-15] MEDS: LEVOFLOXACIN INJ 750 MG in PREMIX 1 EACH IV SCH (14:59)
[2020-08-15] MEDS: DEXMEDETOMIDINE 400 MCG in SODIUM CHLORIDE 0.9% 96 ML IV PRN (19:22)
[2020-08-15] MEDS: ATORVASTATIN 40 MG TABLET PO SCH (21:02)
[2020-08-16] MEDS: ALBUTEROL INHALER 18 GM INH SCH ×4 (01:55→21:00)
[2020-08-16] MEDS: ENOXAPARIN 80 MG/0.8 ML SYRINGE SUBCUT SCH ×2 (02:20→16:31)
[2020-08-16] MEDS: LINEZOLID INJ 600 MG in PREMIX 1 EACH IV SCH ×2 (02:20→17:10)
[2020-08-16] MEDS: ZINC OXIDE PASTE 113 GM TUBE TOP SCH ×3 (02:21→21:00)
[2020-08-16 04:05] LABS: Eosinophils % 0.1 % (0.00-10.9); Hematocrit 28.2 VOL% (42.0-52.0); Hemoglobin 8.9 GM/DL (14.0-18.0); Immature Granulocytes % 1.2 %; Immature Granulocytes Absolute 0.08 #; Lymphocytes # 0.4 10*3/uL (1.4-4.0); Lymphocytes % 6.3 % (21.2-54.2); Mean Corpuscular HGB Conc 31.6 GM/DL (32-36); Mean Corpuscular Volume 95.9 FL (87-102); Mean Platelet Volume 10.9 FL (9.6-12.0); Neutrophils % 86.4 % (38.7-73.9); Platelet Count 189 T/CUMM (130-400); Red Blood Count 2.94 MC/CUMM (3.8-5.5); Red Cell Distribution Width 15.7 % (9.3-17.3); White Blood Count 6.8 T/CUMM (4-12)
[2020-08-16] MEDS: cloNIDine 0.1 MG TABLET PO PRN ×2 (04:35→16:30)
[2020-08-16 04:38] LABS: Calcium 8.5 MG/DL (8.5-10.1); Osmolality,Calculated 299.3 MOS/KG (273-304)
[2020-08-16 05:26] LABS: ABG Base Excess 0.1 MMOL/L (-2.5-2.5); ABG HCO3 24.5 MMOL/L (20-26); ABG Oxygen Saturation 95.1 % (95-100); ABG PCO2 33.8 MM HG (35-48); ABG PH 7.454 (7.35-7.45); ABG TCO2 21.8 MMOL/L (23-27)
[2020-08-16] MEDS: INSULIN REGULAR 100 UNIT/ML SUBCUT SCH ×3 (06:23→18:25)
[2020-08-16] MEDS: fentaNYL INJ 1,250 MCG in SODIUM CHLORIDE 0.9% 225 ML IV PRN (06:28)
[2020-08-16] MEDS: DEXMEDETOMIDINE 400 MCG in SODIUM CHLORIDE 0.9% 96 ML IV PRN ×2 (06:32→19:58)
[2020-08-16] MEDS: ZINC GLUCONATE 50 MG TABLET PO SCH (08:26)
[2020-08-16] MEDS: ASCORBIC ACID 500 MG TABLET PO SCH (08:26)
[2020-08-16] MEDS: CLOPIDOGREL 75 MG TABLET PO SCH (08:26)
[2020-08-16] MEDS: amLODIPine 10 MG TABLET PO SCH (08:26)
[2020-08-16] MEDS: FAMOTIDINE 20 MG TABLET PO SCH (08:26)
[2020-08-16] MEDS: LEVOTHYROXINE 25 MCG TABLET PO SCH (08:26)
[2020-08-16] MEDS: CHOLECALCIFEROL 400 UNIT TABLET PO SCH (08:26)
[2020-08-16] MEDS: FEBUXOSTAT 80 MG TABLET PO SCH (08:26)
[2020-08-16] MEDS ORDERED: FUROSEMIDE 40 MG/4 ML VIAL IV ONE (09:20)
[2020-08-16 11:24] LABS: ABG Base Excess 0.1 MMOL/L (-2.5-2.5); ABG HCO3 24.5 MMOL/L (20-26); ABG PCO2 37.9 MM HG (35-48); ABG PH 7.417 (7.35-7.45); ABG PO2 91.8 MM HG (80-95); ABG TCO2 22.3 MMOL/L (23-27)
[2020-08-16] MEDS: methylPREDNISolone SOD SUC 40 MG/1 ML VIAL IV SCH (11:48)
[2020-08-16] MEDS ORDERED: METOPROLOL TARTRATE 25 MG TABLET PO SCH (14:20)
[2020-08-16] MEDS: OLMESARTAN 20 MG TABLET PO SCH ×2 (15:37→21:00)
[2020-08-16] MEDS: LEVOFLOXACIN INJ 750 MG in PREMIX 1 EACH IV SCH (15:37)
[2020-08-16] MEDS: ATORVASTATIN 40 MG TABLET PO SCH (21:00)
[2020-08-16] MEDS: FUROSEMIDE 40 MG/4 ML VIAL IV SCH (21:00)
[2020-08-17] MEDS: INSULIN REGULAR 100 UNIT/ML SUBCUT SCH ×4 (00:34→17:44)
[2020-08-17] MEDS: methylPREDNISolone SOD SUC 40 MG/1 ML VIAL IV SCH ×2 (00:35→12:25)
[2020-08-17] MEDS: DEXMEDETOMIDINE 400 MCG in SODIUM CHLORIDE 0.9% 96 ML IV PRN ×5 (01:04→21:20)
[2020-08-17] MEDS: ALBUTEROL INHALER 18 GM INH SCH ×4 (01:24→18:11)
[2020-08-17] MEDS: LINEZOLID INJ 600 MG in PREMIX 1 EACH IV SCH ×2 (02:57→14:21)
[2020-08-17 03:23] LABS: ABG Base Excess 4.3 MMOL/L (-2.5-2.5); ABG HCO3 28.2 MMOL/L (20-26); ABG Oxygen Saturation 95.1 % (95-100); ABG PCO2 33.4 MM HG (35-48); ABG PH 7.516 (7.35-7.45); ABG PO2 71.8 MM HG (80-95); Allen Test Positive; Pt O2 Delivery Device Ventilator
[2020-08-17 03:53] LABS: Eosinophils % 0.1 % (0.00-10.9); Hematocrit 29.6 VOL% (42.0-52.0); Hemoglobin 9.6 GM/DL (14.0-18.0); Immature Granulocytes % 1.1 %; Immature Granulocytes Absolute 0.08 #; Lymphocytes # 0.4 10*3/uL (1.4-4.0); Lymphocytes % 5.9 % (21.2-54.2); Mean Corpuscular HGB Conc 32.4 GM/DL (32-36); Mean Corpuscular Volume 94.9 FL (87-102); Mean Platelet Volume 10.3 FL (9.6-12.0); Monocytes % 4.9 % (1.7-12.7); Platelet Count 205 T/CUMM (130-400); Red Blood Count 3.12 MC/CUMM (3.8-5.5); Red Cell Distribution Width 15.5 % (9.3-17.3)
[2020-08-17] MEDS: ENOXAPARIN 80 MG/0.8 ML SYRINGE SUBCUT SCH ×2 (03:55→15:35)
[2020-08-17 04:21] LABS: Calcium 8.7 MG/DL (8.5-10.1); Osmolality,Calculated 296.4 MOS/KG (273-304)
[2020-08-17] MEDS: LEVOTHYROXINE 25 MCG TABLET PO SCH (08:56)
[2020-08-17] MEDS: FEBUXOSTAT 80 MG TABLET PO SCH (08:57)
[2020-08-17] MEDS: amLODIPine 10 MG TABLET PO SCH (08:57)
[2020-08-17] MEDS: OLMESARTAN 20 MG TABLET PO SCH ×2 (08:57→20:38)
[2020-08-17] MEDS: FAMOTIDINE 20 MG TABLET PO SCH (08:57)
[2020-08-17] MEDS: CLOPIDOGREL 75 MG TABLET PO SCH (08:57)
[2020-08-17] MEDS: CHOLECALCIFEROL 400 UNIT TABLET PO SCH (08:57)
[2020-08-17] MEDS: ASCORBIC ACID 500 MG TABLET PO SCH (08:58)
[2020-08-17] MEDS: ZINC GLUCONATE 50 MG TABLET PO SCH (08:58)
[2020-08-17] MEDS: FUROSEMIDE 40 MG/4 ML VIAL IV SCH ×2 (08:58→15:35)
[2020-08-17] MEDS: ZINC OXIDE PASTE 113 GM TUBE TOP SCH ×2 (08:58→20:38)
[2020-08-17] MEDS: LEVOFLOXACIN INJ 750 MG in PREMIX 1 EACH IV SCH (12:57)
[2020-08-17] MEDS: ATORVASTATIN 40 MG TABLET PO SCH (20:37)
[2020-08-18] MEDS: INSULIN REGULAR 100 UNIT/ML SUBCUT SCH ×4 (00:37→17:29)
[2020-08-18] MEDS: ALBUTEROL INHALER 18 GM INH SCH ×4 (00:38→18:08)
[2020-08-18] MEDS: methylPREDNISolone SOD SUC 40 MG/1 ML VIAL IV SCH ×2 (00:38→12:46)
[2020-08-18] MEDS: DEXMEDETOMIDINE 400 MCG in SODIUM CHLORIDE 0.9% 96 ML IV PRN ×2 (01:35→05:50)
[2020-08-18] MEDS: ENOXAPARIN 80 MG/0.8 ML SYRINGE SUBCUT SCH ×2 (03:05→14:56)
[2020-08-18] MEDS: LINEZOLID INJ 600 MG in PREMIX 1 EACH IV SCH ×2 (03:05→14:35)
[2020-08-18 03:41] LABS: Eosinophils % 0.1 % (0.00-10.9); Hematocrit 30.7 VOL% (42.0-52.0); Immature Granulocytes % 0.7 %; Immature Granulocytes Absolute 0.06 #; Lymphocytes # 0.4 10*3/uL (1.4-4.0); Lymphocytes % 4.8 % (21.2-54.2); Mean Corpuscular HGB Conc 32.6 GM/DL (32-36); Mean Corpuscular Volume 94.2 FL (87-102); Mean Platelet Volume 10.8 FL (9.6-12.0); Monocytes % 4.2 % (1.7-12.7); Neutrophils % 90.2 % (38.7-73.9); Platelet Count 199 T/CUMM (130-400); Red Blood Count 3.26 MC/CUMM (3.8-5.5); Red Cell Distribution Width 15.6 % (9.3-17.3); White Blood Count 8.7 T/CUMM (4-12)
[2020-08-18 04:01] LABS: Calcium 8.4 MG/DL (8.5-10.1); Osmolality,Calculated 298.4 MOS/KG (273-304)
[2020-08-18 04:31] LABS: Hypochromasia 1+; Lymphocytes 9 % (20-55); Microcytosis 1+; Platelet Estimate Adequate; Segmented Neutrophils 88 % (50-85); Total Cells Counted 100
[2020-08-18 04:37] LABS: ABG Base Excess 5.1 MMOL/L (-2.5-2.5); ABG HCO3 27.3 MMOL/L (20-26); ABG Oxygen Saturation 95.1 % (95-100); ABG PCO2 31.7 MM HG (35-48); ABG PH 7.553 (7.35-7.45); ABG PO2 73.8 MM HG (80-95); ABG TCO2 28.3 MMOL/L (23-27); Allen Test Positive; Pt O2 Delivery Device Ventilator
[2020-08-18] MEDS: FUROSEMIDE 40 MG/4 ML VIAL IV SCH ×2 (07:58→15:18)
[2020-08-18] MEDS: CHOLECALCIFEROL 400 UNIT TABLET PO SCH (08:00)
[2020-08-18] MEDS: CLOPIDOGREL 75 MG TABLET PO SCH (08:00)
[2020-08-18] MEDS: amLODIPine 10 MG TABLET PO SCH (08:00)
[2020-08-18] MEDS: ZINC GLUCONATE 50 MG TABLET PO SCH (08:00)
[2020-08-18] MEDS: FEBUXOSTAT 80 MG TABLET PO SCH (08:00)
[2020-08-18] MEDS: ASCORBIC ACID 500 MG TABLET PO SCH (08:00)
[2020-08-18] MEDS: OLMESARTAN 20 MG TABLET PO SCH ×2 (08:00→20:12)
[2020-08-18] MEDS: LEVOTHYROXINE 25 MCG TABLET PO SCH (08:00)
[2020-08-18] MEDS: ZINC OXIDE PASTE 113 GM TUBE TOP SCH ×2 (08:01→20:12)
[2020-08-18] MEDS: LEVOFLOXACIN INJ 750 MG in PREMIX 1 EACH IV SCH (13:03)
[2020-08-18] MEDS: METOPROLOL TARTRATE 25 MG TABLET PO SCH ×4 (17:28→20:12)
[2020-08-18] MEDS: ATORVASTATIN 40 MG TABLET PO SCH (20:12)
[2020-08-19] MEDS: methylPREDNISolone SOD SUC 40 MG/1 ML VIAL IV SCH (00:36)
[2020-08-19] MEDS: ALBUTEROL INHALER 18 GM INH SCH ×3 (00:36→15:32)
[2020-08-19] MEDS: LINEZOLID INJ 600 MG in PREMIX 1 EACH IV SCH ×2 (02:51→13:36)
[2020-08-19] MEDS: ENOXAPARIN 80 MG/0.8 ML SYRINGE SUBCUT SCH ×2 (02:51→15:12)
[2020-08-19 04:45] LABS: Basophils % 0.2 % (0.0-0.8); Eosinophils % 0.2 % (0.00-10.9); Hematocrit 32.9 VOL% (42.0-52.0); Hemoglobin 10.5 GM/DL (14.0-18.0); Immature Granulocytes % 0.8 %; Lymphocytes # 0.6 10*3/uL (1.4-4.0); Mean Corpuscular HGB Conc 31.9 GM/DL (32-36); Mean Corpuscular Volume 94.8 FL (87-102); Mean Platelet Volume 10.9 FL (9.6-12.0); Monocytes % 7.5 % (1.7-12.7); Neutrophils % 86.3 % (38.7-73.9); Platelet Count 227 T/CUMM (130-400); Red Blood Count 3.47 MC/CUMM (3.8-5.5); Red Cell Distribution Width 15.9 % (9.3-17.3); White Blood Count 12.6 T/CUMM (4-12)
[2020-08-19 05:01] LABS: Calcium 8.7 MG/DL (8.5-10.1)
[2020-08-19] MEDS: ASCORBIC ACID 500 MG TABLET PO SCH (08:16)
[2020-08-19] MEDS: CHOLECALCIFEROL 400 UNIT TABLET PO SCH (08:16)
[2020-08-19] MEDS: FUROSEMIDE 40 MG/4 ML VIAL IV SCH (08:16)
[2020-08-19] MEDS: ZINC GLUCONATE 50 MG TABLET PO SCH (08:16)
[2020-08-19] MEDS: FEBUXOSTAT 80 MG TABLET PO SCH (08:17)
[2020-08-19] MEDS: LEVOTHYROXINE 25 MCG TABLET PO SCH (08:17)
[2020-08-19] MEDS: amLODIPine 10 MG TABLET PO SCH (08:17)
[2020-08-19] MEDS: OLMESARTAN 20 MG TABLET PO SCH ×2 (08:17→21:00)
[2020-08-19] MEDS: CLOPIDOGREL 75 MG TABLET PO SCH (08:17)
[2020-08-19] MEDS: METOPROLOL TARTRATE 25 MG TABLET PO SCH (08:18)
[2020-08-19] MEDS: ZINC OXIDE PASTE 113 GM TUBE TOP SCH ×2 (08:19→21:00)
[2020-08-19] MEDS ORDERED: hydrALAZINE 20 MG/1 ML VIAL IV PRN (10:34)
[2020-08-19] MEDS ORDERED: METOPROLOL TARTRATE 25 MG TABLET PO ONE (11:00)
[2020-08-19] MEDS: LEVOFLOXACIN INJ 750 MG in PREMIX 1 EACH IV SCH (12:06)
[2020-08-19] MEDS ORDERED: METOPROLOL TARTRATE 25 MG TABLET PO SCH (21:00)
[2020-08-19] MEDS: ATORVASTATIN 40 MG TABLET PO SCH (21:00)
[2020-08-20] MEDS: LINEZOLID INJ 600 MG in PREMIX 1 EACH IV SCH ×2 (01:00→14:24)
[2020-08-20] MEDS: ENOXAPARIN 80 MG/0.8 ML SYRINGE SUBCUT SCH ×2 (03:55→14:24)
[2020-08-20 04:30] LABS: Basophils % 0.1 % (0.0-0.8); Eosinophils # 0.2 10*3/uL (0.0-0.87); Eosinophils % 2.2 % (0.00-10.9); Hemoglobin 9.9 GM/DL (14.0-18.0); Immature Granulocytes % 0.9 %; Immature Granulocytes Absolute 0.09 #; Lymphocytes # 1.1 10*3/uL (1.4-4.0); Lymphocytes % 10.9 % (21.2-54.2); Mean Corpuscular HGB Conc 31.9 GM/DL (32-36); Mean Platelet Volume 9.9 FL (9.6-12.0); Monocytes % 11.4 % (1.7-12.7); Neutrophils % 74.5 % (38.7-73.9); Platelet Count 209 T/CUMM (130-400); Red Blood Count 3.23 MC/CUMM (3.8-5.5); Red Cell Distribution Width 16.1 % (9.3-17.3)
[2020-08-20 04:46] LABS: Calcium 8.5 MG/DL (8.5-10.1)
[2020-08-20] MEDS: POTASSIUM CHLORIDE 20 MEQ/15 ML UDCUP PER TUBE PRN ×4 (05:28→14:25)
[2020-08-20] MEDS ORDERED: MAGNESIUM SULF RIDER 4 GM in PREMIX 1 EACH IV PRN (07:02)
[2020-08-20] MEDS ORDERED: POTASSIUM CHLORIDE RIDER 10 MEQ in PREMIX 1 EACH IV PRN (07:02)
[2020-08-20] MEDS ORDERED: MAGNESIUM SULF RIDER 2 GM in PREMIX 1 EACH IV PRN (07:02)
[2020-08-20] MEDS ORDERED: METOPROLOL TARTRATE 50 MG TABLET ONE (07:25)
[2020-08-20] MEDS: ASCORBIC ACID 500 MG TABLET PO SCH (08:14)
[2020-08-20] MEDS: OLMESARTAN 20 MG TABLET PO SCH ×2 (08:14→21:36)
[2020-08-20] MEDS: CLOPIDOGREL 75 MG TABLET PO SCH (08:14)
[2020-08-20] MEDS: amLODIPine 10 MG TABLET PO SCH (08:14)
[2020-08-20] MEDS: CHOLECALCIFEROL 400 UNIT TABLET PO SCH (08:15)
[2020-08-20] MEDS: FEBUXOSTAT 80 MG TABLET PO SCH (08:15)
[2020-08-20] MEDS: ZINC GLUCONATE 50 MG TABLET PO SCH (08:15)
[2020-08-20] MEDS: LEVOTHYROXINE 25 MCG TABLET PO SCH (08:15)
[2020-08-20] MEDS: predniSONE 20 MG TABLET PO SCH (08:38)
[2020-08-20] MEDS: METOPROLOL TARTRATE 50 MG TABLET PO SCH ×2 (08:38→21:38)
[2020-08-20] MEDS ORDERED: FUROSEMIDE 40 MG/4 ML VIAL IV SCH ×2 (09:00→21:00)
[2020-08-20] MEDS ORDERED: METOPROLOL TARTRATE 25 MG TABLET PO SCH (09:00)
[2020-08-20] MEDS: ZINC OXIDE PASTE 113 GM TUBE TOP SCH ×2 (11:19→21:36)
[2020-08-20] MEDS: INSULIN LISPRO 100 UNIT/ML SUBCUT SCH ×3 (11:34→21:36)
[2020-08-20] MEDS: LEVOFLOXACIN INJ 750 MG in PREMIX 1 EACH IV SCH (12:00)
[2020-08-20] MEDS ORDERED: OXYMETAZOLINE 0.05% NASAL SPRAY 15 ML BOTTLE BOTH NARES PRN (12:19)
[2020-08-20 12:53] LABS: ABG Base Excess 6.3 MMOL/L (-2.5-2.5); ABG HCO3 30.1 MMOL/L (20-26); ABG Oxygen Saturation 96.3 % (95-100); ABG PCO2 37.8 MM HG (35-48); ABG PH 7.505 (7.35-7.45); ABG PO2 78.8 MM HG (80-95); ABG TCO2 26.7 MMOL/L (23-27)
[2020-08-20] MEDS: ALBUTEROL INHALER 18 GM INH SCH ×3 (14:24→20:20)
[2020-08-20] MEDS: ATORVASTATIN 40 MG TABLET PO SCH (21:38)
[2020-08-20] MEDS: MELATONIN 3 MG TABLET PO SCH (21:38)
[2020-08-21] MEDS: ALBUTEROL INHALER 18 GM INH SCH ×4 (01:02→18:17)
[2020-08-21] MEDS: POTASSIUM CHLORIDE RIDER 20 MEQ in PREMIX 1 EACH IV PRN ×2 (01:02→03:05)
[2020-08-21] MEDS: LINEZOLID INJ 600 MG in PREMIX 1 EACH IV SCH ×2 (01:03→14:29)
[2020-08-21] MEDS: ENOXAPARIN 80 MG/0.8 ML SYRINGE SUBCUT SCH ×2 (03:07→14:29)
[2020-08-21 05:52] LABS: ABG Base Excess 2.4 MMOL/L (-2.5-2.5); ABG HCO3 26.5 MMOL/L (20-26); ABG Oxygen Saturation 94.5 % (95-100); ABG PCO2 35.6 MM HG (35-48); ABG TCO2 23.7 MMOL/L (23-27)
[2020-08-21 06:23] LABS: Basophils % 0.2 % (0.0-0.8); Eosinophils # 0.2 10*3/uL (0.0-0.87); Eosinophils % 1.9 % (0.00-10.9); Hemoglobin 9.7 GM/DL (14.0-18.0); Immature Granulocytes % 0.7 %; Immature Granulocytes Absolute 0.08 #; Lymphocytes % 8.5 % (21.2-54.2); Mean Corpuscular HGB Conc 31.3 GM/DL (32-36); Mean Corpuscular Volume 97.8 FL (87-102); Mean Platelet Volume 10.5 FL (9.6-12.0); Monocytes % 9.8 % (1.7-12.7); Neutrophils % 78.9 % (38.7-73.9); Platelet Count 232 T/CUMM (130-400); Red Blood Count 3.17 MC/CUMM (3.8-5.5); Red Cell Distribution Width 16.3 % (9.3-17.3); White Blood Count 11.5 T/CUMM (4-12)
[2020-08-21 06:48] LABS: Calcium 8.6 MG/DL (8.5-10.1); Osmolality,Calculated 294.7 MOS/KG (273-304)
[2020-08-21] MEDS: INSULIN LISPRO 100 UNIT/ML SUBCUT SCH ×4 (07:45→20:20)
[2020-08-21] MEDS: POTASSIUM CHLORIDE 20 MEQ/15 ML UDCUP PER TUBE PRN ×2 (08:43→12:23)
[2020-08-21] MEDS: predniSONE 20 MG TABLET PO SCH (08:44)
[2020-08-21] MEDS: amLODIPine 10 MG TABLET PO SCH (08:45)
[2020-08-21] MEDS: FEBUXOSTAT 80 MG TABLET PO SCH (08:45)
[2020-08-21] MEDS: ASCORBIC ACID 500 MG TABLET PO SCH (08:45)
[2020-08-21] MEDS: LEVOTHYROXINE 25 MCG TABLET PO SCH (08:45)
[2020-08-21] MEDS: FAMOTIDINE 20 MG TABLET PO SCH (08:45)
[2020-08-21] MEDS: ZINC GLUCONATE 50 MG TABLET PO SCH (08:45)
[2020-08-21] MEDS: OLMESARTAN 20 MG TABLET PO SCH ×2 (08:45→20:19)
[2020-08-21] MEDS: CHOLECALCIFEROL 400 UNIT TABLET PO SCH (08:45)
[2020-08-21] MEDS: CLOPIDOGREL 75 MG TABLET PO SCH (08:46)
[2020-08-21] MEDS: METOPROLOL TARTRATE 50 MG TABLET PO SCH ×2 (08:46→20:19)
[2020-08-21] MEDS: ZINC OXIDE PASTE 113 GM TUBE TOP SCH ×2 (08:46→20:19)
[2020-08-21] MEDS: MELATONIN 3 MG TABLET PO SCH (20:18)
[2020-08-21] MEDS: ATORVASTATIN 40 MG TABLET PO SCH (20:18)
[2020-08-22] MEDS: ALBUTEROL INHALER 18 GM INH SCH ×4 (01:08→18:05)
[2020-08-22] MEDS: ENOXAPARIN 80 MG/0.8 ML SYRINGE SUBCUT SCH ×2 (03:30→14:17)
[2020-08-22 04:35] LABS: Calcium 8.5 MG/DL (8.5-10.1); Osmolality,Calculated 298.4 MOS/KG (273-304)
[2020-08-22 05:26] LABS: Basophils % 0.1 % (0.0-0.8); Eosinophils # 0.2 10*3/uL (0.0-0.87); Eosinophils % 1.6 % (0.00-10.9); Hematocrit 29.5 VOL% (42.0-52.0); Hemoglobin 9.1 GM/DL (14.0-18.0); Immature Granulocytes % 0.8 %; Immature Granulocytes Absolute 0.08 #; Lymphocytes # 0.9 10*3/uL (1.4-4.0); Mean Corpuscular HGB Conc 30.8 GM/DL (32-36); Mean Corpuscular Volume 99.3 FL (87-102); Mean Platelet Volume 10.7 FL (9.6-12.0); Monocytes % 10.2 % (1.7-12.7); Neutrophils % 78.3 % (38.7-73.9); Platelet Count 249 T/CUMM (130-400); Red Blood Count 2.97 MC/CUMM (3.8-5.5); Red Cell Distribution Width 16.6 % (9.3-17.3); White Blood Count 9.8 T/CUMM (4-12)
[2020-08-22] MEDS: POTASSIUM CHLORIDE 20 MEQ/15 ML UDCUP PER TUBE PRN ×4 (06:21→14:19)
[2020-08-22] MEDS: INSULIN LISPRO 100 UNIT/ML SUBCUT SCH ×4 (08:19→20:02)
[2020-08-22] MEDS: OLMESARTAN 20 MG TABLET PO SCH ×2 (08:21→20:01)
[2020-08-22] MEDS: METOPROLOL TARTRATE 50 MG TABLET PO SCH ×2 (08:21→20:02)
[2020-08-22] MEDS: FEBUXOSTAT 80 MG TABLET PO SCH (08:21)
[2020-08-22] MEDS: amLODIPine 10 MG TABLET PO SCH (08:21)
[2020-08-22] MEDS: ZINC GLUCONATE 50 MG TABLET PO SCH (08:21)
[2020-08-22] MEDS: FAMOTIDINE 20 MG TABLET PO SCH (08:21)
[2020-08-22] MEDS: CHOLECALCIFEROL 400 UNIT TABLET PO SCH (08:21)
[2020-08-22] MEDS: ASCORBIC ACID 500 MG TABLET PO SCH (08:21)
[2020-08-22] MEDS: LEVOTHYROXINE 25 MCG TABLET PO SCH (08:21)
[2020-08-22] MEDS: CLOPIDOGREL 75 MG TABLET PO SCH (08:22)
[2020-08-22] MEDS: ZINC OXIDE PASTE 113 GM TUBE TOP SCH ×2 (08:22→20:01)
[2020-08-22] MEDS: predniSONE 20 MG TABLET PO SCH (08:22)
[2020-08-22] MEDS: MELATONIN 3 MG TABLET PO SCH (20:01)
[2020-08-22] MEDS: ATORVASTATIN 40 MG TABLET PO SCH (20:02)
[2020-08-23] MEDS: ENOXAPARIN 80 MG/0.8 ML SYRINGE SUBCUT SCH ×2 (03:28→16:05)
[2020-08-23] MEDS: ALBUTEROL INHALER 18 GM INH SCH ×4 (03:28→19:45)
[2020-08-23 04:07] LABS: Basophils % 0.3 % (0.0-0.8); Eosinophils # 0.1 10*3/uL (0.0-0.87); Eosinophils % 1.1 % (0.00-10.9); Hematocrit 29.9 VOL% (42.0-52.0); Hemoglobin 9.3 GM/DL (14.0-18.0); Immature Granulocytes % 0.7 %; Immature Granulocytes Absolute 0.07 #; Lymphocytes # 0.9 10*3/uL (1.4-4.0); Lymphocytes % 9.2 % (21.2-54.2); Mean Corpuscular HGB Conc 31.1 GM/DL (32-36); Mean Corpuscular Volume 99.7 FL (87-102); Mean Platelet Volume 10.5 FL (9.6-12.0); Monocytes % 10.8 % (1.7-12.7); Neutrophils % 77.9 % (38.7-73.9); Platelet Count 264 T/CUMM (130-400); Red Cell Distribution Width 16.9 % (9.3-17.3); White Blood Count 9.8 T/CUMM (4-12)
[2020-08-23 05:12] LABS: Calcium 8.4 MG/DL (8.5-10.1); Osmolality,Calculated 306.9 MOS/KG (273-304)
[2020-08-23 05:15] LABS: Albumin 2.2 G/DL (3.4-5.0); Bilirubin,Total 1.2 MG/DL (0.2-1.0); Calcium 8.4 MG/DL (8.5-10.1); Osmolality,Calculated 305.9 MOS/KG (273-304); Total Protein 6.1 G/DL (6.4-8.3)
[2020-08-23] MEDS: CHOLECALCIFEROL 400 UNIT TABLET PO SCH (08:37)
[2020-08-23] MEDS: POTASSIUM CHLORIDE 20 MEQ/15 ML UDCUP PER TUBE PRN (08:37)
[2020-08-23] MEDS: OLMESARTAN 20 MG TABLET PO SCH ×2 (08:37→20:35)
[2020-08-23] MEDS: LEVOTHYROXINE 25 MCG TABLET PO SCH (08:38)
[2020-08-23] MEDS: ZINC OXIDE PASTE 113 GM TUBE TOP SCH ×2 (08:38→21:39)
[2020-08-23] MEDS: FEBUXOSTAT 80 MG TABLET PO SCH (08:38)
[2020-08-23] MEDS: FAMOTIDINE 20 MG TABLET PO SCH (08:38)
[2020-08-23] MEDS: amLODIPine 10 MG TABLET PO SCH (08:39)
[2020-08-23] MEDS: ZINC GLUCONATE 50 MG TABLET PO SCH (08:39)
[2020-08-23] MEDS: CLOPIDOGREL 75 MG TABLET PO SCH (08:39)
[2020-08-23] MEDS: ASCORBIC ACID 500 MG TABLET PO SCH (08:39)
[2020-08-23] MEDS: METOPROLOL TARTRATE 50 MG TABLET PO SCH ×2 (08:43→20:36)
[2020-08-23] MEDS: predniSONE 20 MG TABLET PO SCH (08:44)
[2020-08-23] MEDS: INSULIN LISPRO 100 UNIT/ML SUBCUT SCH ×4 (09:02→21:39)
[2020-08-23] MEDS ORDERED: POTASSIUM CHLORIDE 10 MEQ TABLET PO ONE (14:51)
[2020-08-23] MEDS: MELATONIN 3 MG TABLET PO SCH (20:35)
[2020-08-23] MEDS: ATORVASTATIN 40 MG TABLET PO SCH (20:36)
[2020-08-24] MEDS: ALBUTEROL INHALER 18 GM INH SCH ×4 (01:35→18:31)
[2020-08-24 05:34] LABS: Basophils % 0.2 % (0.0-0.8); Eosinophils # 0.1 10*3/uL (0.0-0.87); Eosinophils % 0.8 % (0.00-10.9); Hemoglobin 9.3 GM/DL (14.0-18.0); Immature Granulocytes % 0.9 %; Immature Granulocytes Absolute 0.08 #; Lymphocytes # 1.1 10*3/uL (1.4-4.0); Lymphocytes % 12.6 % (21.2-54.2); Mean Platelet Volume 9.9 FL (9.6-12.0); Monocytes % 11.4 % (1.7-12.7); Neutrophils % 74.1 % (38.7-73.9); Platelet Count 289 T/CUMM (130-400); Red Cell Distribution Width 17.2 % (9.3-17.3); White Blood Count 8.5 T/CUMM (4-12)
[2020-08-24 06:02] LABS: Calcium 8.6 MG/DL (8.5-10.1); Osmolality,Calculated 306.7 MOS/KG (273-304)
[2020-08-24] MEDS: INSULIN LISPRO 100 UNIT/ML SUBCUT SCH ×4 (10:21→23:12)
[2020-08-24] MEDS: POTASSIUM CHLORIDE 20 MEQ/15 ML UDCUP PER TUBE PRN ×4 (10:24→19:09)
[2020-08-24] MEDS: ENOXAPARIN 80 MG/0.8 ML SYRINGE SUBCUT SCH ×2 (10:24→23:13)
[2020-08-24] MEDS: OLMESARTAN 20 MG TABLET PO SCH ×2 (10:25→23:15)
[2020-08-24] MEDS: predniSONE 20 MG TABLET PO SCH (10:25)
[2020-08-24] MEDS: CHOLECALCIFEROL 400 UNIT TABLET PO SCH (10:25)
[2020-08-24] MEDS: LEVOTHYROXINE 25 MCG TABLET PO SCH (10:25)
[2020-08-24] MEDS: ASCORBIC ACID 500 MG TABLET PO SCH (10:25)
[2020-08-24] MEDS: FEBUXOSTAT 80 MG TABLET PO SCH (10:25)
[2020-08-24] MEDS: ZINC OXIDE PASTE 113 GM TUBE TOP SCH ×2 (10:26→23:16)
[2020-08-24] MEDS: METOPROLOL TARTRATE 50 MG TABLET PO SCH ×2 (10:26→23:15)
[2020-08-24] MEDS: ZINC GLUCONATE 50 MG TABLET PO SCH (10:26)
[2020-08-24] MEDS: CLOPIDOGREL 75 MG TABLET PO SCH (10:26)
[2020-08-24] MEDS: FAMOTIDINE 20 MG TABLET PO SCH (10:26)
[2020-08-24] MEDS: amLODIPine 10 MG TABLET PO SCH (10:26)
[2020-08-24] MEDS ORDERED: TUBERCULIN SKIN TEST 0.1 ML SYRINGE INTRADERM ONE (13:22)
[2020-08-24] MEDS: ATORVASTATIN 40 MG TABLET PO SCH (23:15)
[2020-08-24] MEDS: MELATONIN 3 MG TABLET PO SCH (23:20)
[2020-08-25] MEDS: ALBUTEROL INHALER 18 GM INH SCH ×4 (00:24→18:22)
[2020-08-25 07:28] LABS: Basophils % 0.3 % (0.0-0.8); Eosinophils # 0.1 10*3/uL (0.0-0.87); Hematocrit 30.8 VOL% (42.0-52.0); Hemoglobin 9.6 GM/DL (14.0-18.0); Immature Granulocytes % 1.5 %; Immature Granulocytes Absolute 0.14 #; Lymphocytes # 1.2 10*3/uL (1.4-4.0); Lymphocytes % 12.7 % (21.2-54.2); Mean Corpuscular HGB Conc 31.2 GM/DL (32-36); Mean Corpuscular Volume 98.7 FL (87-102); Mean Platelet Volume 9.9 FL (9.6-12.0); Monocytes % 10.5 % (1.7-12.7); Platelet Count 321 T/CUMM (130-400); Red Blood Count 3.12 MC/CUMM (3.8-5.5); Red Cell Distribution Width 17.5 % (9.3-17.3); White Blood Count 9.6 T/CUMM (4-12)
[2020-08-25 07:49] LABS: Calcium 8.8 MG/DL (8.5-10.1); Osmolality,Calculated 306.6 MOS/KG (273-304)
[2020-08-25] MEDS: INSULIN LISPRO 100 UNIT/ML SUBCUT SCH ×4 (08:34→22:59)
[2020-08-25] MEDS: FAMOTIDINE 20 MG TABLET PO SCH (10:17)
[2020-08-25] MEDS: ASCORBIC ACID 500 MG TABLET PO SCH (10:18)
[2020-08-25] MEDS: CLOPIDOGREL 75 MG TABLET PO SCH (10:18)
[2020-08-25] MEDS: FEBUXOSTAT 80 MG TABLET PO SCH (10:18)
[2020-08-25] MEDS: predniSONE 20 MG TABLET PO SCH (10:18)
[2020-08-25] MEDS: OLMESARTAN 20 MG TABLET PO SCH ×2 (10:18→22:58)
[2020-08-25] MEDS: METOPROLOL TARTRATE 50 MG TABLET PO SCH ×2 (10:18→22:58)
[2020-08-25] MEDS: LEVOTHYROXINE 25 MCG TABLET PO SCH (10:18)
[2020-08-25] MEDS: ZINC GLUCONATE 50 MG TABLET PO SCH (10:19)
[2020-08-25] MEDS: ZINC OXIDE PASTE 113 GM TUBE TOP SCH ×2 (10:19→23:00)
[2020-08-25] MEDS: amLODIPine 10 MG TABLET PO SCH (10:19)
[2020-08-25] MEDS: CHOLECALCIFEROL 400 UNIT TABLET PO SCH (10:19)
[2020-08-25] MEDS: ENOXAPARIN 80 MG/0.8 ML SYRINGE SUBCUT SCH ×2 (10:19→23:00)
[2020-08-25] MEDS ORDERED: POTASSIUM CHLORIDE 20 MEQ/15 ML UDCUP PO ONE (15:00)
[2020-08-25] MEDS: DEXTROSE 5% 1,000 ML IV SCH (15:28)
[2020-08-25] MEDS: MELATONIN 3 MG TABLET PO SCH (22:58)
[2020-08-25] MEDS: ATORVASTATIN 40 MG TABLET PO SCH (22:59)
[2020-08-26] MEDS: ALBUTEROL INHALER 18 GM INH SCH ×4 (00:13→18:18)
[2020-08-26] MEDS: INSULIN LISPRO 100 UNIT/ML SUBCUT SCH ×4 (07:18→21:19)
[2020-08-26] MEDS: ASCORBIC ACID 500 MG TABLET PO SCH (08:18)
[2020-08-26] MEDS: OLMESARTAN 20 MG TABLET PO SCH ×2 (08:18→21:18)
[2020-08-26] MEDS: METOPROLOL TARTRATE 50 MG TABLET PO SCH ×2 (08:18→21:19)
[2020-08-26] MEDS: predniSONE 20 MG TABLET PO SCH (08:18)
[2020-08-26] MEDS: amLODIPine 10 MG TABLET PO SCH (08:18)
[2020-08-26] MEDS: ENOXAPARIN 80 MG/0.8 ML SYRINGE SUBCUT SCH ×2 (08:19→21:20)
[2020-08-26] MEDS: CHOLECALCIFEROL 400 UNIT TABLET PO SCH (08:19)
[2020-08-26] MEDS: CLOPIDOGREL 75 MG TABLET PO SCH (08:19)
[2020-08-26] MEDS: FAMOTIDINE 20 MG TABLET PO SCH (08:19)
[2020-08-26] MEDS: LEVOTHYROXINE 25 MCG TABLET PO SCH (08:19)
[2020-08-26] MEDS: ZINC GLUCONATE 50 MG TABLET PO SCH (08:19)
[2020-08-26] MEDS: FEBUXOSTAT 80 MG TABLET PO SCH (08:19)
[2020-08-26] MEDS: ZINC OXIDE PASTE 113 GM TUBE TOP SCH ×2 (08:20→21:20)
[2020-08-26] MEDS: DEXTROSE 5% 1,000 ML IV SCH (11:19)
[2020-08-26] MEDS: MELATONIN 3 MG TABLET PO SCH (21:18)
[2020-08-26] MEDS: ATORVASTATIN 40 MG TABLET PO SCH (21:19)
[2020-08-27] MEDS: ALBUTEROL INHALER 18 GM INH SCH ×4 (01:30→18:31)
[2020-08-27 05:41] LABS: Basophils % 0.4 % (0.0-0.8); Eosinophils # 0.2 10*3/uL (0.0-0.87); Hematocrit 29.3 VOL% (42.0-52.0); Hemoglobin 9.2 GM/DL (14.0-18.0); Immature Granulocytes % 1.5 %; Immature Granulocytes Absolute 0.12 #; Lymphocytes # 1.1 10*3/uL (1.4-4.0); Lymphocytes % 13.3 % (21.2-54.2); Mean Corpuscular HGB Conc 31.4 GM/DL (32-36); Mean Platelet Volume 10.6 FL (9.6-12.0); Monocytes % 9.2 % (1.7-12.7); Neutrophils % 73.6 % (38.7-73.9); Platelet Count 275 T/CUMM (130-400); Red Blood Count 2.93 MC/CUMM (3.8-5.5); White Blood Count 8.1 T/CUMM (4-12)
[2020-08-27 06:00] LABS: Calcium 8.3 MG/DL (8.5-10.1); Osmolality,Calculated 298.1 MOS/KG (273-304)
[2020-08-27] MEDS: DEXTROSE 5% 1,000 ML IV SCH (07:08)
[2020-08-27] MEDS: ASCORBIC ACID 500 MG TABLET PO SCH (08:18)
[2020-08-27] MEDS: amLODIPine 10 MG TABLET PO SCH (08:18)
[2020-08-27] MEDS: ZINC GLUCONATE 50 MG TABLET PO SCH (08:18)
[2020-08-27] MEDS: FEBUXOSTAT 80 MG TABLET PO SCH (08:19)
[2020-08-27] MEDS: CHOLECALCIFEROL 400 UNIT TABLET PO SCH (08:19)
[2020-08-27] MEDS: predniSONE 20 MG TABLET PO SCH (08:19)
[2020-08-27] MEDS: OLMESARTAN 20 MG TABLET PO SCH ×2 (08:19→20:39)
[2020-08-27] MEDS: LEVOTHYROXINE 25 MCG TABLET PO SCH (08:19)
[2020-08-27] MEDS: ZINC OXIDE PASTE 113 GM TUBE TOP SCH ×2 (08:20→20:40)
[2020-08-27] MEDS: METOPROLOL TARTRATE 50 MG TABLET PO SCH ×2 (08:20→20:39)
[2020-08-27] MEDS: POTASSIUM CHLORIDE 20 MEQ/15 ML UDCUP PO PRN ×4 (08:21→16:47)
[2020-08-27] MEDS: ENOXAPARIN 80 MG/0.8 ML SYRINGE SUBCUT SCH ×2 (08:21→20:40)
[2020-08-27] MEDS: INSULIN LISPRO 100 UNIT/ML SUBCUT SCH ×4 (08:25→20:41)
[2020-08-27] MEDS: FAMOTIDINE 20 MG TABLET PO SCH (09:05)
[2020-08-27] MEDS: CLOPIDOGREL 75 MG TABLET PO SCH (09:05)
[2020-08-27] MEDS: MELATONIN 3 MG TABLET PO SCH (20:39)
[2020-08-27] MEDS: ATORVASTATIN 40 MG TABLET PO SCH (20:39)
[2020-08-28] MEDS: POTASSIUM CHLORIDE 20 MEQ/15 ML UDCUP PO PRN ×4 (00:50→10:19)
[2020-08-28] MEDS: ALBUTEROL INHALER 18 GM INH SCH ×4 (01:11→22:09)
[2020-08-28] MEDS: DEXTROSE 5% 1,000 ML IV SCH (04:53)
[2020-08-28 05:21] LABS: Basophils % 0.4 % (0.0-0.8); Eosinophils # 0.2 10*3/uL (0.0-0.87); Hematocrit 30.4 VOL% (42.0-52.0); Hemoglobin 9.2 GM/DL (14.0-18.0); Immature Granulocytes % 1.5 %; Immature Granulocytes Absolute 0.12 #; Lymphocytes # 1.2 10*3/uL (1.4-4.0); Lymphocytes % 14.5 % (21.2-54.2); Mean Corpuscular HGB Conc 30.3 GM/DL (32-36); Mean Corpuscular Volume 101.3 FL (87-102); Mean Platelet Volume 10.1 FL (9.6-12.0); Neutrophils % 73.6 % (38.7-73.9); Platelet Count 279 T/CUMM (130-400); Red Cell Distribution Width 18.3 % (9.3-17.3); White Blood Count 8.2 T/CUMM (4-12)
[2020-08-28 05:51] LABS: Calcium 8.3 MG/DL (8.5-10.1); Osmolality,Calculated 295.3 MOS/KG (273-304)
[2020-08-28] MEDS: INSULIN LISPRO 100 UNIT/ML SUBCUT SCH ×4 (08:23→22:10)
[2020-08-28] MEDS: ENOXAPARIN 80 MG/0.8 ML SYRINGE SUBCUT SCH ×2 (10:39→22:10)
[2020-08-28] MEDS: OLMESARTAN 20 MG TABLET PO SCH ×2 (10:39→22:08)
[2020-08-28] MEDS: CHOLECALCIFEROL 400 UNIT TABLET PO SCH (10:39)
[2020-08-28] MEDS: METOPROLOL TARTRATE 50 MG TABLET PO SCH ×2 (10:40→22:08)
[2020-08-28] MEDS: ZINC OXIDE PASTE 113 GM TUBE TOP SCH ×2 (10:40→22:10)
[2020-08-28] MEDS: predniSONE 20 MG TABLET PO SCH (10:40)
[2020-08-28] MEDS: ASCORBIC ACID 500 MG TABLET PO SCH (10:43)
[2020-08-28] MEDS: FAMOTIDINE 20 MG TABLET PO SCH (10:43)
[2020-08-28] MEDS: FEBUXOSTAT 80 MG TABLET PO SCH (10:43)
[2020-08-28] MEDS: ZINC GLUCONATE 50 MG TABLET PO SCH (10:43)
[2020-08-28] MEDS: CLOPIDOGREL 75 MG TABLET PO SCH (10:43)
[2020-08-28] MEDS: amLODIPine 10 MG TABLET PO SCH (10:43)
[2020-08-28] MEDS: LEVOTHYROXINE 25 MCG TABLET PO SCH (10:43)
[2020-08-28] MEDS: ATORVASTATIN 40 MG TABLET PO SCH (22:08)
[2020-08-28] MEDS: MELATONIN 3 MG TABLET PO SCH (22:08)
[2020-08-29] MEDS: DEXTROSE 5% 1,000 ML IV SCH (01:12)
[2020-08-29] MEDS: ALBUTEROL INHALER 18 GM INH SCH ×4 (01:13→20:54)
[2020-08-29 06:14] LABS: Basophils % 0.4 % (0.0-0.8); Eosinophils # 0.2 10*3/uL (0.0-0.87); Hemoglobin 9.5 GM/DL (14.0-18.0); Immature Granulocytes % 1.6 %; Immature Granulocytes Absolute 0.13 #; Lymphocytes # 1.2 10*3/uL (1.4-4.0); Lymphocytes % 14.8 % (21.2-54.2); Mean Corpuscular HGB Conc 31.7 GM/DL (32-36); Mean Corpuscular Volume 99.3 FL (87-102); Mean Platelet Volume 10.3 FL (9.6-12.0); Neutrophils % 73.2 % (38.7-73.9); Platelet Count 241 T/CUMM (130-400); Red Blood Count 3.02 MC/CUMM (3.8-5.5); Red Cell Distribution Width 18.3 % (9.3-17.3); White Blood Count 7.9 T/CUMM (4-12)
[2020-08-29 06:33] LABS: Calcium 8.3 MG/DL (8.5-10.1); Osmolality,Calculated 294.3 MOS/KG (273-304)
[2020-08-29] MEDS: INSULIN LISPRO 100 UNIT/ML SUBCUT SCH ×4 (07:51→20:53)
[2020-08-29] MEDS: ENOXAPARIN 80 MG/0.8 ML SYRINGE SUBCUT SCH ×2 (09:44→20:53)
[2020-08-29] MEDS: predniSONE 20 MG TABLET PO SCH (09:44)
[2020-08-29] MEDS: POTASSIUM CHLORIDE 20 MEQ/15 ML UDCUP PO PRN (09:44)
[2020-08-29] MEDS: ASCORBIC ACID 500 MG TABLET PO SCH (09:45)
[2020-08-29] MEDS: amLODIPine 10 MG TABLET PO SCH (09:45)
[2020-08-29] MEDS: FAMOTIDINE 20 MG TABLET PO SCH (09:45)
[2020-08-29] MEDS: CHOLECALCIFEROL 400 UNIT TABLET PO SCH (09:45)
[2020-08-29] MEDS: CLOPIDOGREL 75 MG TABLET PO SCH (09:45)
[2020-08-29] MEDS: METOPROLOL TARTRATE 50 MG TABLET PO SCH ×2 (09:45→20:53)
[2020-08-29] MEDS: OLMESARTAN 20 MG TABLET PO SCH ×2 (09:45→20:53)
[2020-08-29] MEDS: LEVOTHYROXINE 25 MCG TABLET PO SCH (09:45)
[2020-08-29] MEDS: ZINC GLUCONATE 50 MG TABLET PO SCH (09:45)
[2020-08-29] MEDS: FEBUXOSTAT 80 MG TABLET PO SCH (09:45)
[2020-08-29] MEDS: ZINC OXIDE PASTE 113 GM TUBE TOP SCH ×2 (09:47→22:54)
[2020-08-29] MEDS ORDERED: POTASSIUM CHLORIDE 20 MEQ TABLET PO ONE (13:45)
[2020-08-29] MEDS: ATORVASTATIN 40 MG TABLET PO SCH (20:53)
[2020-08-29] MEDS: MELATONIN 3 MG TABLET PO SCH (20:53)
[2020-08-30] MEDS: ALBUTEROL INHALER 18 GM INH SCH ×4 (01:41→22:56)
[2020-08-30 06:10] LABS: Basophils % 0.2 % (0.0-0.8); Eosinophils # 0.1 10*3/uL (0.0-0.87); Eosinophils % 1.3 % (0.00-10.9); Hematocrit 30.3 VOL% (42.0-52.0); Hemoglobin 9.7 GM/DL (14.0-18.0); Immature Granulocytes % 1.1 %; Lymphocytes # 1.1 10*3/uL (1.4-4.0); Lymphocytes % 11.6 % (21.2-54.2); Mean Platelet Volume 10.5 FL (9.6-12.0); Neutrophils % 78.8 % (38.7-73.9); Platelet Count 253 T/CUMM (130-400); Red Blood Count 3.06 MC/CUMM (3.8-5.5); Red Cell Distribution Width 17.6 % (9.3-17.3); White Blood Count 9.5 T/CUMM (4-12)
[2020-08-30 06:31] LABS: Calcium 8.1 MG/DL (8.5-10.1); Osmolality,Calculated 293.3 MOS/KG (273-304)
[2020-08-30] MEDS: DEXTROSE 5% 1,000 ML IV SCH (08:01)
[2020-08-30] MEDS: OLMESARTAN 20 MG TABLET PO SCH ×2 (09:09→22:56)
[2020-08-30] MEDS: predniSONE 20 MG TABLET PO SCH (09:09)
[2020-08-30] MEDS: LEVOTHYROXINE 25 MCG TABLET PO SCH (09:09)
[2020-08-30] MEDS: FAMOTIDINE 20 MG TABLET PO SCH (09:09)
[2020-08-30] MEDS: ASCORBIC ACID 500 MG TABLET PO SCH (09:09)
[2020-08-30] MEDS: amLODIPine 10 MG TABLET PO SCH (09:10)
[2020-08-30] MEDS: CHOLECALCIFEROL 400 UNIT TABLET PO SCH (09:10)
[2020-08-30] MEDS: FEBUXOSTAT 80 MG TABLET PO SCH (09:10)
[2020-08-30] MEDS: METOPROLOL TARTRATE 50 MG TABLET PO SCH ×2 (09:10→22:55)
[2020-08-30] MEDS: ZINC OXIDE PASTE 113 GM TUBE TOP SCH ×2 (09:11→22:56)
[2020-08-30] MEDS: ZINC GLUCONATE 50 MG TABLET PO SCH (09:11)
[2020-08-30] MEDS: ENOXAPARIN 80 MG/0.8 ML SYRINGE SUBCUT SCH ×2 (09:13→22:55)
[2020-08-30] MEDS: CLOPIDOGREL 75 MG TABLET PO SCH (09:13)
[2020-08-30] MEDS: INSULIN LISPRO 100 UNIT/ML SUBCUT SCH ×4 (09:13→22:55)
[2020-08-30] MEDS: POTASSIUM CHLORIDE 20 MEQ/15 ML UDCUP PO PRN (12:40)
[2020-08-30] MEDS ORDERED: POTASSIUM CHLORIDE 20 MEQ TABLET PO ONE (14:59)
[2020-08-30] MEDS: FUROSEMIDE 20 MG TABLET PO SCH (16:34)
[2020-08-30] MEDS: ATORVASTATIN 40 MG TABLET PO SCH (22:55)
[2020-08-30] MEDS: MELATONIN 3 MG TABLET PO SCH (22:55)
[2020-08-31] MEDS: ALBUTEROL INHALER 18 GM INH SCH ×4 (01:18→18:40)
[2020-08-31] MEDS: DEXTROSE 5% 1,000 ML IV SCH ×2 (04:18→15:11)
[2020-08-31 05:53] LABS: Basophils % 0.4 % (0.0-0.8); Eosinophils # 0.1 10*3/uL (0.0-0.87); Hematocrit 32.8 VOL% (42.0-52.0); Immature Granulocytes % 1.3 %; Immature Granulocytes Absolute 0.13 #; Lymphocytes # 1.3 10*3/uL (1.4-4.0); Lymphocytes % 12.9 % (21.2-54.2); Mean Corpuscular HGB Conc 30.5 GM/DL (32-36); Mean Corpuscular Volume 102.5 FL (87-102); Mean Platelet Volume 10.4 FL (9.6-12.0); Monocytes % 7.8 % (1.7-12.7); Neutrophils % 76.6 % (38.7-73.9); Platelet Count 235 T/CUMM (130-400); Red Cell Distribution Width 18.6 % (9.3-17.3)
[2020-08-31 06:05] LABS: Calcium 8.4 MG/DL (8.5-10.1); Osmolality,Calculated 291.4 MOS/KG (273-304)
[2020-08-31] MEDS: INSULIN LISPRO 100 UNIT/ML SUBCUT SCH ×4 (08:55→22:18)
[2020-08-31] MEDS: FUROSEMIDE 20 MG TABLET PO SCH ×2 (10:11→15:40)
[2020-08-31] MEDS: ZINC GLUCONATE 50 MG TABLET PO SCH (10:11)
[2020-08-31] MEDS: CHOLECALCIFEROL 400 UNIT TABLET PO SCH (10:11)
[2020-08-31] MEDS: FEBUXOSTAT 80 MG TABLET PO SCH (10:11)
[2020-08-31] MEDS: FAMOTIDINE 20 MG TABLET PO SCH (10:12)
[2020-08-31] MEDS: ASCORBIC ACID 500 MG TABLET PO SCH (10:12)
[2020-08-31] MEDS: OLMESARTAN 20 MG TABLET PO SCH ×3 (10:12→21:02)
[2020-08-31] MEDS: LEVOTHYROXINE 25 MCG TABLET PO SCH (10:12)
[2020-08-31] MEDS: predniSONE 20 MG TABLET PO SCH (10:12)
[2020-08-31] MEDS: METOPROLOL TARTRATE 50 MG TABLET PO SCH ×2 (10:12→21:02)
[2020-08-31] MEDS: ENOXAPARIN 80 MG/0.8 ML SYRINGE SUBCUT SCH ×2 (10:12→21:02)
[2020-08-31] MEDS: CLOPIDOGREL 75 MG TABLET PO SCH (10:13)
[2020-08-31] MEDS: ZINC OXIDE PASTE 113 GM TUBE TOP SCH ×2 (10:13→21:03)
[2020-08-31] MEDS: POTASSIUM CHLORIDE 20 MEQ/15 ML UDCUP PO PRN ×4 (10:13→17:46)
[2020-08-31] MEDS: amLODIPine 10 MG TABLET PO SCH ×2 (10:13→11:03)
[2020-08-31] MEDS: MELATONIN 3 MG TABLET PO SCH (21:02)
[2020-08-31] MEDS: ATORVASTATIN 40 MG TABLET PO SCH (21:02)
[2020-09-01] MEDS: ALBUTEROL INHALER 18 GM INH SCH ×4 (00:04→21:58)
[2020-09-01] MEDS: POTASSIUM CHLORIDE 20 MEQ/15 ML UDCUP PO PRN ×2 (04:10→06:34)
[2020-09-01] MEDS: INSULIN LISPRO 100 UNIT/ML SUBCUT SCH ×4 (07:16→21:51)
[2020-09-01] MEDS: OLMESARTAN 20 MG TABLET PO SCH ×2 (09:30→21:50)
[2020-09-01] MEDS: CHOLECALCIFEROL 400 UNIT TABLET PO SCH (09:30)
[2020-09-01] MEDS: ZINC GLUCONATE 50 MG TABLET PO SCH (09:31)
[2020-09-01] MEDS: LEVOTHYROXINE 25 MCG TABLET PO SCH (09:31)
[2020-09-01] MEDS: amLODIPine 10 MG TABLET PO SCH (09:32)
[2020-09-01] MEDS: FAMOTIDINE 20 MG TABLET PO SCH (09:32)
[2020-09-01] MEDS: ASCORBIC ACID 500 MG TABLET PO SCH (09:33)
[2020-09-01] MEDS: METOPROLOL TARTRATE 50 MG TABLET PO SCH (09:34)
[2020-09-01] MEDS: CLOPIDOGREL 75 MG TABLET PO SCH (09:34)
[2020-09-01] MEDS: predniSONE 20 MG TABLET PO SCH (09:34)
[2020-09-01] MEDS: FUROSEMIDE 20 MG TABLET PO SCH ×2 (09:35→17:35)
[2020-09-01] MEDS: FEBUXOSTAT 80 MG TABLET PO SCH (09:36)
[2020-09-01] MEDS: ENOXAPARIN 80 MG/0.8 ML SYRINGE SUBCUT SCH ×2 (09:38→21:50)
[2020-09-01] MEDS: ZINC OXIDE PASTE 113 GM TUBE TOP SCH ×2 (09:38→21:58)
[2020-09-01] MEDS: DEXTROSE 5% 1,000 ML IV SCH (10:51)
[2020-09-01] MEDS: MELATONIN 3 MG TABLET PO SCH (21:50)
[2020-09-01] MEDS: ATORVASTATIN 40 MG TABLET PO SCH (21:50)
[2020-09-02] MEDS: ALBUTEROL INHALER 18 GM INH SCH ×4 (01:35→18:01)
[2020-09-02] MEDS: DEXTROSE 5% 1,000 ML IV SCH (06:12)
[2020-09-02] MEDS: ENOXAPARIN 80 MG/0.8 ML SYRINGE SUBCUT SCH ×2 (09:33→21:26)
[2020-09-02] MEDS: FAMOTIDINE 20 MG TABLET PO SCH (09:34)
[2020-09-02] MEDS: ASCORBIC ACID 500 MG TABLET PO SCH (09:34)
[2020-09-02] MEDS: predniSONE 20 MG TABLET PO SCH (09:34)
[2020-09-02] MEDS: CLOPIDOGREL 75 MG TABLET PO SCH (09:34)
[2020-09-02] MEDS: ZINC GLUCONATE 50 MG TABLET PO SCH (09:34)
[2020-09-02] MEDS: FEBUXOSTAT 80 MG TABLET PO SCH (09:34)
[2020-09-02] MEDS: LEVOTHYROXINE 25 MCG TABLET PO SCH (09:34)
[2020-09-02] MEDS: CHOLECALCIFEROL 400 UNIT TABLET PO SCH (09:34)
[2020-09-02] MEDS: INSULIN LISPRO 100 UNIT/ML SUBCUT SCH ×4 (09:35→20:16)
[2020-09-02] MEDS: ZINC OXIDE PASTE 113 GM TUBE TOP SCH ×2 (09:35→21:25)
[2020-09-02] MEDS: FUROSEMIDE 20 MG TABLET PO SCH ×2 (09:35→15:51)
[2020-09-02] MEDS: OLMESARTAN 20 MG TABLET PO SCH ×2 (09:35→21:25)
[2020-09-02] MEDS: amLODIPine 10 MG TABLET PO SCH (09:36)
[2020-09-02] MEDS: ATORVASTATIN 40 MG TABLET PO SCH (21:26)
[2020-09-02] MEDS: MELATONIN 3 MG TABLET PO SCH (21:26)
[2020-09-03] MEDS: ALBUTEROL INHALER 18 GM INH SCH ×4 (01:59→21:37)
[2020-09-03 04:55] LABS: Basophils % 0.5 % (0.0-0.8); Eosinophils # 0.1 10*3/uL (0.0-0.87); Eosinophils % 1.5 % (0.00-10.9); Hemoglobin 10.8 GM/DL (14.0-18.0); Immature Granulocytes % 1.3 %; Lymphocytes % 13.5 % (21.2-54.2); Mean Corpuscular HGB Conc 31.8 GM/DL (32-36); Mean Corpuscular Volume 100.3 FL (87-102); Mean Platelet Volume 10.9 FL (9.6-12.0); Monocytes % 9.4 % (1.7-12.7); Neutrophils % 73.8 % (38.7-73.9); Platelet Count 199 T/CUMM (130-400); Red Blood Count 3.39 MC/CUMM (3.8-5.5); Red Cell Distribution Width 18.7 % (9.3-17.3); White Blood Count 7.5 T/CUMM (4-12)
[2020-09-03 06:11] LABS: Alanine Aminotransferase 69 U/L (16-61); Albumin 2.4 G/DL (3.4-5.0); Alkaline Phosphatase 102 U/L (45-117); Aspartate Amino Transferase 30 U/L (0-37); Bilirubin,Direct < 0.100 MG/DL (0.0-0.20); Bilirubin,Indirect 0.9 MG/DL (0.0-1.0); Blood Urea Nitrogen 16 MG/DL (7-18); Calcium 8.4 MG/DL (8.5-10.1); Estimated Glom Filtration Rate 149 ML/MIN; Glucose 92 MG/DL (74-106); Osmolality,Calculated 290.6 MOS/KG (273-304); Total Protein 6.1 G/DL (6.4-8.3)
[2020-09-03] MEDS: predniSONE 20 MG TABLET PO SCH (12:01)
[2020-09-03] MEDS: ENOXAPARIN 80 MG/0.8 ML SYRINGE SUBCUT SCH ×2 (12:01→21:36)
[2020-09-03] MEDS: OLMESARTAN 20 MG TABLET PO SCH ×2 (12:02→21:37)
[2020-09-03] MEDS: FEBUXOSTAT 80 MG TABLET PO SCH (12:02)
[2020-09-03] MEDS: CHOLECALCIFEROL 400 UNIT TABLET PO SCH (12:02)
[2020-09-03] MEDS: FAMOTIDINE 20 MG TABLET PO SCH (12:02)
[2020-09-03] MEDS: LEVOTHYROXINE 25 MCG TABLET PO SCH (12:02)
[2020-09-03] MEDS: ASCORBIC ACID 500 MG TABLET PO SCH (12:03)
[2020-09-03] MEDS: ZINC GLUCONATE 50 MG TABLET PO SCH (12:03)
[2020-09-03] MEDS: amLODIPine 10 MG TABLET PO SCH (12:03)
[2020-09-03] MEDS: FUROSEMIDE 20 MG TABLET PO SCH ×2 (12:03→16:32)
[2020-09-03] MEDS: CLOPIDOGREL 75 MG TABLET PO SCH (12:03)
[2020-09-03] MEDS: POTASSIUM CHLORIDE 20 MEQ/15 ML UDCUP PO PRN ×3 (12:03→16:39)
[2020-09-03] MEDS: ZINC OXIDE PASTE 113 GM TUBE TOP SCH ×2 (12:04→21:38)
[2020-09-03] MEDS: INSULIN LISPRO 100 UNIT/ML SUBCUT SCH ×3 (12:04→21:37)
[2020-09-03] MEDS: DEXTROSE 5% 1,000 ML IV SCH ×3 (12:32→21:57)
[2020-09-03] MEDS: MELATONIN 3 MG TABLET PO SCH (21:37)
[2020-09-03] MEDS: ATORVASTATIN 40 MG TABLET PO SCH (21:37)
[2020-09-04] MEDS: ALBUTEROL INHALER 18 GM INH SCH ×4 (01:47→21:12)
[2020-09-04 06:17] LABS: Basophils % 0.5 % (0.0-0.8); Eosinophils # 0.1 10*3/uL (0.0-0.87); Eosinophils % 1.5 % (0.00-10.9); Hematocrit 32.8 VOL% (42.0-52.0); Hemoglobin 10.3 GM/DL (14.0-18.0); Immature Granulocytes % 1.1 %; Immature Granulocytes Absolute 0.09 #; Lymphocytes % 12.6 % (21.2-54.2); Mean Corpuscular HGB Conc 31.4 GM/DL (32-36); Mean Corpuscular Volume 101.5 FL (87-102); Mean Platelet Volume 11.2 FL (9.6-12.0); Monocytes % 9.6 % (1.7-12.7); Neutrophils % 74.7 % (38.7-73.9); Platelet Count 203 T/CUMM (130-400); Red Blood Count 3.23 MC/CUMM (3.8-5.5); Red Cell Distribution Width 18.8 % (9.3-17.3)
[2020-09-04 06:48] LABS: Albumin 2.5 G/DL (3.4-5.0); Bilirubin,Direct 0.13 MG/DL (0.0-0.20); Bilirubin,Indirect 0.3 MG/DL (0.0-1.0); Bilirubin,Total 0.4 MG/DL (0.2-1.0); Calcium 8.6 MG/DL (8.5-10.1); Osmolality,Calculated 294.3 MOS/KG (273-304); Total Protein 6.2 G/DL (6.4-8.3)
[2020-09-04] MEDS: INSULIN LISPRO 100 UNIT/ML SUBCUT SCH ×4 (07:48→21:30)
[2020-09-04] MEDS: ENOXAPARIN 80 MG/0.8 ML SYRINGE SUBCUT SCH ×2 (08:02→21:11)
[2020-09-04] MEDS: FAMOTIDINE 20 MG TABLET PO SCH (08:03)
[2020-09-04] MEDS: LEVOTHYROXINE 25 MCG TABLET PO SCH (08:03)
[2020-09-04] MEDS: OLMESARTAN 20 MG TABLET PO SCH ×2 (08:03→21:10)
[2020-09-04] MEDS: FEBUXOSTAT 80 MG TABLET PO SCH (08:03)
[2020-09-04] MEDS: CHOLECALCIFEROL 400 UNIT TABLET PO SCH (08:03)
[2020-09-04] MEDS: ZINC GLUCONATE 50 MG TABLET PO SCH (08:03)
[2020-09-04] MEDS: amLODIPine 10 MG TABLET PO SCH (08:04)
[2020-09-04] MEDS: predniSONE 20 MG TABLET PO SCH (08:04)
[2020-09-04] MEDS: ASCORBIC ACID 500 MG TABLET PO SCH (08:04)
[2020-09-04] MEDS: FUROSEMIDE 20 MG TABLET PO SCH ×2 (08:04→16:04)
[2020-09-04] MEDS: CLOPIDOGREL 75 MG TABLET PO SCH (08:04)
[2020-09-04] MEDS: ZINC OXIDE PASTE 113 GM TUBE TOP SCH ×2 (08:05→21:12)
[2020-09-04] MEDS: DEXTROSE 5% 1,000 ML IV SCH (14:42)
[2020-09-04] MEDS: diphenhydrAMINE CAP 25 MG CAPSULE PO PRN (21:10)
[2020-09-04] MEDS: ATORVASTATIN 40 MG TABLET PO SCH (21:10)
[2020-09-04] MEDS: MELATONIN 3 MG TABLET PO SCH (21:11)
[2020-09-05] MEDS: ALBUTEROL INHALER 18 GM INH SCH ×4 (01:45→21:05)
[2020-09-05 06:14] LABS: Basophils # 0.1 10*3/uL (0.0-0.2); Basophils % 0.7 % (0.0-0.8); Eosinophils # 0.1 10*3/uL (0.0-0.87); Eosinophils % 1.8 % (0.00-10.9); Hematocrit 32.3 VOL% (42.0-52.0); Hemoglobin 10.2 GM/DL (14.0-18.0); Immature Granulocytes % 1.1 %; Immature Granulocytes Absolute 0.08 #; Lymphocytes # 1.1 10*3/uL (1.4-4.0); Lymphocytes % 15.2 % (21.2-54.2); Mean Corpuscular HGB Conc 31.6 GM/DL (32-36); Neutrophils % 71.2 % (38.7-73.9); Platelet Count 195 T/CUMM (130-400); Red Blood Count 3.23 MC/CUMM (3.8-5.5); Red Cell Distribution Width 18.1 % (9.3-17.3); White Blood Count 7.4 T/CUMM (4-12)
[2020-09-05 06:30] LABS: Calcium 8.2 MG/DL (8.5-10.1); Osmolality,Calculated 292.4 MOS/KG (273-304)
[2020-09-05] MEDS: CHOLECALCIFEROL 400 UNIT TABLET PO SCH (08:04)
[2020-09-05] MEDS: ENOXAPARIN 80 MG/0.8 ML SYRINGE SUBCUT SCH ×2 (08:04→21:05)
[2020-09-05] MEDS: CLOPIDOGREL 75 MG TABLET PO SCH (08:04)
[2020-09-05] MEDS: ASCORBIC ACID 500 MG TABLET PO SCH (08:04)
[2020-09-05] MEDS: OLMESARTAN 20 MG TABLET PO SCH ×2 (08:04→21:06)
[2020-09-05] MEDS: amLODIPine 10 MG TABLET PO SCH (08:04)
[2020-09-05] MEDS: FAMOTIDINE 20 MG TABLET PO SCH (08:04)
[2020-09-05] MEDS: LEVOTHYROXINE 25 MCG TABLET PO SCH (08:05)
[2020-09-05] MEDS: FUROSEMIDE 20 MG TABLET PO SCH ×2 (08:05→15:00)
[2020-09-05] MEDS: predniSONE 20 MG TABLET PO SCH (08:05)
[2020-09-05] MEDS: FEBUXOSTAT 80 MG TABLET PO SCH (08:05)
[2020-09-05] MEDS: ZINC GLUCONATE 50 MG TABLET PO SCH (08:05)
[2020-09-05] MEDS: INSULIN LISPRO 100 UNIT/ML SUBCUT SCH ×4 (08:06→21:06)
[2020-09-05] MEDS: ZINC OXIDE PASTE 113 GM TUBE TOP SCH ×2 (08:06→21:06)
[2020-09-05] MEDS: ACETAMINOPHEN 325 MG TABLET PO PRN (10:16)
[2020-09-05] MEDS: DEXTROSE 5% 1,000 ML IV SCH (10:17)
[2020-09-05] MEDS: ATORVASTATIN 40 MG TABLET PO SCH (21:05)
[2020-09-05] MEDS: diphenhydrAMINE CAP 25 MG CAPSULE PO PRN (21:05)
[2020-09-05] MEDS: MELATONIN 3 MG TABLET PO SCH (21:06)
[2020-09-06] MEDS: ALBUTEROL INHALER 18 GM INH SCH ×4 (03:28→21:36)
[2020-09-06 06:39] LABS: Basophils % 0.6 % (0.0-0.8); Eosinophils # 0.1 10*3/uL (0.0-0.87); Eosinophils % 1.9 % (0.00-10.9); Hematocrit 33.8 VOL% (42.0-52.0); Hemoglobin 10.7 GM/DL (14.0-18.0); Immature Granulocytes % 1.1 %; Immature Granulocytes Absolute 0.07 #; Lymphocytes # 1.1 10*3/uL (1.4-4.0); Lymphocytes % 17.3 % (21.2-54.2); Mean Corpuscular HGB Conc 31.7 GM/DL (32-36); Mean Platelet Volume 11.1 FL (9.6-12.0); Monocytes % 10.2 % (1.7-12.7); Neutrophils % 68.9 % (38.7-73.9); Platelet Count 193 T/CUMM (130-400); Red Blood Count 3.38 MC/CUMM (3.8-5.5); White Blood Count 6.2 T/CUMM (4-12)
[2020-09-06 07:03] LABS: Calcium 8.4 MG/DL (8.5-10.1); Osmolality,Calculated 290.4 MOS/KG (273-304)
[2020-09-06] MEDS: INSULIN LISPRO 100 UNIT/ML SUBCUT SCH ×4 (07:29→21:36)
[2020-09-06] MEDS ORDERED: POTASSIUM CHLORIDE 20 MEQ TABLET PO ONE ×2 (08:37→10:00)
[2020-09-06] MEDS: DEXTROSE 5% 1,000 ML IV SCH (09:16)
[2020-09-06] MEDS: FUROSEMIDE 20 MG TABLET PO SCH ×2 (09:16→16:06)
[2020-09-06] MEDS: ASCORBIC ACID 500 MG TABLET PO SCH (09:16)
[2020-09-06] MEDS: CHOLECALCIFEROL 400 UNIT TABLET PO SCH (09:16)
[2020-09-06] MEDS: FEBUXOSTAT 80 MG TABLET PO SCH (09:16)
[2020-09-06] MEDS: predniSONE 10 MG TABLET PO SCH (09:17)
[2020-09-06] MEDS: ENOXAPARIN 80 MG/0.8 ML SYRINGE SUBCUT SCH ×2 (09:17→21:35)
[2020-09-06] MEDS: amLODIPine 10 MG TABLET PO SCH (09:17)
[2020-09-06] MEDS: ZINC GLUCONATE 50 MG TABLET PO SCH (09:17)
[2020-09-06] MEDS: FAMOTIDINE 20 MG TABLET PO SCH (09:17)
[2020-09-06] MEDS: LEVOTHYROXINE 25 MCG TABLET PO SCH (09:17)
[2020-09-06] MEDS: OLMESARTAN 20 MG TABLET PO SCH ×2 (09:17→21:35)
[2020-09-06] MEDS: CLOPIDOGREL 75 MG TABLET PO SCH (09:17)
[2020-09-06] MEDS: ZINC OXIDE PASTE 113 GM TUBE TOP SCH ×2 (09:18→21:36)
[2020-09-06] MEDS: ACETAMINOPHEN 325 MG TABLET PO PRN (11:03)
[2020-09-06] MEDS: POTASSIUM CHLORIDE RIDER 10 MEQ in PREMIX 1 EACH IV PRN ×3 (12:44→17:46)
[2020-09-06] MEDS: MELATONIN 3 MG TABLET PO SCH (21:35)
[2020-09-06] MEDS: diphenhydrAMINE CAP 25 MG CAPSULE PO PRN (21:35)
[2020-09-06] MEDS: ATORVASTATIN 40 MG TABLET PO SCH (21:36)
[2020-09-07] MEDS: POTASSIUM CHLORIDE RIDER 10 MEQ in PREMIX 1 EACH IV PRN ×2 (00:43→02:53)
[2020-09-07] MEDS: ALBUTEROL INHALER 18 GM INH SCH ×2 (01:33→09:34)
[2020-09-07 06:31] LABS: Basophils % 0.5 % (0.0-0.8); Eosinophils # 0.1 10*3/uL (0.0-0.87); Hemoglobin 10.1 GM/DL (14.0-18.0); Immature Granulocytes Absolute 0.06 #; Lymphocytes % 16.7 % (21.2-54.2); Mean Corpuscular HGB Conc 31.6 GM/DL (32-36); Mean Corpuscular Volume 100.9 FL (87-102); Mean Platelet Volume 10.7 FL (9.6-12.0); Monocytes % 10.2 % (1.7-12.7); Neutrophils % 69.6 % (38.7-73.9); Platelet Count 192 T/CUMM (130-400); Red Blood Count 3.17 MC/CUMM (3.8-5.5); Red Cell Distribution Width 18.4 % (9.3-17.3); White Blood Count 5.9 T/CUMM (4-12)
[2020-09-07 07:07] LABS: Calcium 8.4 MG/DL (8.5-10.1); Osmolality,Calculated 286.7 MOS/KG (273-304)
[2020-09-07] MEDS: OLMESARTAN 20 MG TABLET PO SCH ×2 (09:32→22:47)
[2020-09-07] MEDS: FEBUXOSTAT 80 MG TABLET PO SCH (09:33)
[2020-09-07] MEDS: ZINC GLUCONATE 50 MG TABLET PO SCH (09:33)
[2020-09-07] MEDS: ASCORBIC ACID 500 MG TABLET PO SCH (09:33)
[2020-09-07] MEDS: FUROSEMIDE 20 MG TABLET PO SCH ×2 (09:33→16:38)
[2020-09-07] MEDS: FAMOTIDINE 20 MG TABLET PO SCH (09:33)
[2020-09-07] MEDS: LEVOTHYROXINE 25 MCG TABLET PO SCH (09:33)
[2020-09-07] MEDS: predniSONE 10 MG TABLET PO SCH (09:33)
[2020-09-07] MEDS: amLODIPine 10 MG TABLET PO SCH (09:33)
[2020-09-07] MEDS: ZINC OXIDE PASTE 113 GM TUBE TOP SCH ×2 (09:34→22:49)
[2020-09-07] MEDS: ENOXAPARIN 80 MG/0.8 ML SYRINGE SUBCUT SCH ×2 (09:34→22:47)
[2020-09-07] MEDS: CLOPIDOGREL 75 MG TABLET PO SCH (09:34)
[2020-09-07] MEDS: CHOLECALCIFEROL 400 UNIT TABLET PO SCH (09:34)
[2020-09-07] MEDS: POTASSIUM CHLORIDE 20 MEQ/15 ML UDCUP PO PRN ×4 (09:37→22:48)
[2020-09-07] MEDS: INSULIN LISPRO 100 UNIT/ML SUBCUT SCH ×4 (10:30→22:02)
[2020-09-07] MEDS: WARFARIN 5 MG TABLET PO SCH (11:27)
[2020-09-07] MEDS: DEXTROSE 5% 1,000 ML IV SCH ×2 (15:56→22:45)
[2020-09-07] MEDS: ACETAMINOPHEN 325 MG TABLET PO PRN (17:20)
[2020-09-07] MEDS: MELATONIN 3 MG TABLET PO SCH (22:48)
[2020-09-07] MEDS: ATORVASTATIN 40 MG TABLET PO SCH (22:48)
[2020-09-08] MEDS: ALBUTEROL 2.5 MG/3 ML NEB RESP TX SCH ×6 (00:40→19:38)
[2020-09-08 07:21] LABS: Basophils % 0.6 % (0.0-0.8); Eosinophils # 0.1 10*3/uL (0.0-0.87); Eosinophils % 2.2 % (0.00-10.9); Hemoglobin 10.1 GM/DL (14.0-18.0); Immature Granulocytes % 1.3 %; Immature Granulocytes Absolute 0.08 #; Lymphocytes % 16.5 % (21.2-54.2); Mean Corpuscular HGB Conc 31.6 GM/DL (32-36); Mean Corpuscular Volume 100.6 FL (87-102); Mean Platelet Volume 10.6 FL (9.6-12.0); Monocytes % 10.1 % (1.7-12.7); Neutrophils % 69.3 % (38.7-73.9); Platelet Count 176 T/CUMM (130-400); Red Blood Count 3.18 MC/CUMM (3.8-5.5); White Blood Count 6.3 T/CUMM (4-12)
[2020-09-08 07:43] LABS: Calcium 8.5 MG/DL (8.5-10.1); Osmolality,Calculated 288.6 MOS/KG (273-304)
[2020-09-08] MEDS: FUROSEMIDE 20 MG TABLET PO SCH ×2 (08:46→19:04)
[2020-09-08] MEDS: OLMESARTAN 20 MG TABLET PO SCH ×2 (08:46→22:32)
[2020-09-08] MEDS: CLOPIDOGREL 75 MG TABLET PO SCH (08:47)
[2020-09-08] MEDS: predniSONE 10 MG TABLET PO SCH (08:47)
[2020-09-08] MEDS: CHOLECALCIFEROL 400 UNIT TABLET PO SCH (08:47)
[2020-09-08] MEDS: FEBUXOSTAT 80 MG TABLET PO SCH (08:47)
[2020-09-08] MEDS: amLODIPine 10 MG TABLET PO SCH (08:47)
[2020-09-08] MEDS: FAMOTIDINE 20 MG TABLET PO SCH (08:47)
[2020-09-08] MEDS: ENOXAPARIN 80 MG/0.8 ML SYRINGE SUBCUT SCH ×2 (08:48→22:31)
[2020-09-08] MEDS: POTASSIUM CHLORIDE 20 MEQ/15 ML UDCUP PO PRN ×2 (08:48→22:31)
[2020-09-08] MEDS: LEVOTHYROXINE 25 MCG TABLET PO SCH (08:48)
[2020-09-08] MEDS ORDERED: WARFARIN 7.5 MG TABLET PO SCH (09:00)
[2020-09-08] MEDS: INSULIN LISPRO 100 UNIT/ML SUBCUT SCH ×4 (09:27→22:30)
[2020-09-08] MEDS: ZINC OXIDE PASTE 113 GM TUBE TOP SCH ×2 (09:27→22:33)
[2020-09-08] MEDS ORDERED: POTASSIUM CHLORIDE 20 MEQ PACK PO ONE (10:00)
[2020-09-08 10:07] LABS: INR 1.1; PT Patient Result 11.3 SECS (9.8-11.9)
[2020-09-08] MEDS: DEXTROSE 5% 1,000 ML IV SCH (11:18)
[2020-09-08] MEDS: MELATONIN 3 MG TABLET PO SCH (22:32)
[2020-09-08] MEDS: ATORVASTATIN 40 MG TABLET PO SCH (22:32)
[2020-09-09] MEDS: ALBUTEROL 2.5 MG/3 ML NEB RESP TX SCH ×4 (01:05→19:44)
[2020-09-09 06:06] LABS: Basophils # 0.1 10*3/uL (0.0-0.2); Basophils % 0.7 % (0.0-0.8); Eosinophils # 0.1 10*3/uL (0.0-0.87); Eosinophils % 2.1 % (0.00-10.9); Hemoglobin 9.8 GM/DL (14.0-18.0); Immature Granulocytes Absolute 0.07 #; Lymphocytes % 15.2 % (21.2-54.2); Mean Corpuscular HGB Conc 31.6 GM/DL (32-36); Mean Platelet Volume 10.6 FL (9.6-12.0); Monocytes % 8.7 % (1.7-12.7); Neutrophils % 72.3 % (38.7-73.9); Platelet Count 176 T/CUMM (130-400); Red Blood Count 3.04 MC/CUMM (3.8-5.5); Red Cell Distribution Width 18.4 % (9.3-17.3); White Blood Count 6.8 T/CUMM (4-12)
[2020-09-09] MEDS: DEXTROSE 5% 1,000 ML IV SCH (06:14)
[2020-09-09 06:33] LABS: Calcium 8.7 MG/DL (8.5-10.1); Osmolality,Calculated 287.7 MOS/KG (273-304)
[2020-09-09] MEDS: INSULIN LISPRO 100 UNIT/ML SUBCUT SCH ×4 (08:03→20:59)
[2020-09-09] MEDS: ENOXAPARIN 80 MG/0.8 ML SYRINGE SUBCUT SCH ×2 (08:20→20:55)
[2020-09-09] MEDS: OLMESARTAN 20 MG TABLET PO SCH ×2 (08:21→20:55)
[2020-09-09] MEDS: CHOLECALCIFEROL 400 UNIT TABLET PO SCH (08:21)
[2020-09-09] MEDS: POTASSIUM CHLORIDE 20 MEQ/15 ML UDCUP PO PRN (08:21)
[2020-09-09] MEDS: CLOPIDOGREL 75 MG TABLET PO SCH (08:21)
[2020-09-09] MEDS: FUROSEMIDE 20 MG TABLET PO SCH ×2 (08:21→16:34)
[2020-09-09] MEDS: predniSONE 10 MG TABLET PO SCH (08:21)
[2020-09-09] MEDS: FAMOTIDINE 20 MG TABLET PO SCH (08:21)
[2020-09-09] MEDS: amLODIPine 10 MG TABLET PO SCH (08:21)
[2020-09-09] MEDS: LEVOTHYROXINE 25 MCG TABLET PO SCH (08:21)
[2020-09-09] MEDS: WARFARIN 5 MG TABLET PO SCH (08:22)
[2020-09-09] MEDS: ZINC OXIDE PASTE 113 GM TUBE TOP SCH ×2 (08:22→20:59)
[2020-09-09] MEDS: FEBUXOSTAT 80 MG TABLET PO SCH (08:22)
[2020-09-09 09:16] LABS: INR 1.1; PT Patient Result 11.8 SECS (9.8-11.9)
[2020-09-09] MEDS ORDERED: POTASSIUM CHLORIDE 20 MEQ PACK PO ONE (12:28)
[2020-09-09] MEDS: ATORVASTATIN 40 MG TABLET PO SCH (20:55)
[2020-09-09] MEDS: MELATONIN 3 MG TABLET PO SCH (20:55)
[2020-09-10] MEDS: ALBUTEROL 2.5 MG/3 ML NEB RESP TX SCH ×3 (01:07→13:26)
[2020-09-10 05:51] LABS: Basophils # 0.1 10*3/uL (0.0-0.2); Basophils % 0.7 % (0.0-0.8); Eosinophils # 0.2 10*3/uL (0.0-0.87); Eosinophils % 2.2 % (0.00-10.9); Hematocrit 30.6 VOL% (42.0-52.0); Hemoglobin 9.4 GM/DL (14.0-18.0); Immature Granulocytes % 1.3 %; Immature Granulocytes Absolute 0.09 #; Lymphocytes % 15.4 % (21.2-54.2); Mean Corpuscular HGB Conc 30.7 GM/DL (32-36); Mean Corpuscular Volume 103.4 FL (87-102); Mean Platelet Volume 10.7 FL (9.6-12.0); Monocytes % 9.2 % (1.7-12.7); Neutrophils % 71.2 % (38.7-73.9); Platelet Count 177 T/CUMM (130-400); Red Blood Count 2.96 MC/CUMM (3.8-5.5); Red Cell Distribution Width 18.3 % (9.3-17.3); White Blood Count 6.7 T/CUMM (4-12)
[2020-09-10 06:11] LABS: Calcium 8.5 MG/DL (8.5-10.1); Osmolality,Calculated 288.6 MOS/KG (273-304)
[2020-09-10] MEDS: INSULIN LISPRO 100 UNIT/ML SUBCUT SCH ×2 (07:22→11:22)
[2020-09-10] MEDS: ENOXAPARIN 80 MG/0.8 ML SYRINGE SUBCUT SCH (08:17)
[2020-09-10] MEDS: OLMESARTAN 20 MG TABLET PO SCH (08:17)
[2020-09-10] MEDS: FEBUXOSTAT 80 MG TABLET PO SCH (08:17)
[2020-09-10] MEDS: FAMOTIDINE 20 MG TABLET PO SCH (08:18)
[2020-09-10] MEDS: WARFARIN 5 MG TABLET PO SCH (08:18)
[2020-09-10] MEDS: CLOPIDOGREL 75 MG TABLET PO SCH (08:18)
[2020-09-10] MEDS: POTASSIUM CHLORIDE 20 MEQ/15 ML UDCUP PO PRN (08:18)
[2020-09-10] MEDS: LEVOTHYROXINE 25 MCG TABLET PO SCH (08:18)
[2020-09-10] MEDS: amLODIPine 10 MG TABLET PO SCH (08:18)
[2020-09-10] MEDS: CHOLECALCIFEROL 400 UNIT TABLET PO SCH (08:18)
[2020-09-10] MEDS: FUROSEMIDE 20 MG TABLET PO SCH (08:18)
[2020-09-10] MEDS: predniSONE 10 MG TABLET PO SCH (08:18)
[2020-09-10] MEDS: ZINC OXIDE PASTE 113 GM TUBE TOP SCH (08:19)
[2020-09-10] MEDS: DEXTROSE 5% 1,000 ML IV SCH (09:11)
[2020-09-10] MEDS ORDERED: methylPREDNISolone 4 MG TABLET PO SCH (12:00)
[2020-09-10] MEDS ORDERED: POTASSIUM CHLORIDE 20 MEQ PACK PO ONE (13:00)
[2020-09-10 15:35] VITALS: BP 111/49
== END 2020-09-10 16:00 | DRG 853 ==
LOC: N.ED 12:27 → N.EDINP 14:00 → SUATTDRO 14:00 → N.CC 14:51 → N.5E 08-23 14:12
PROVIDERS: ADMIT Internal Medicine; ATTEND Internal Medicine